=== PATIENT | female | born 1995 | race Caucasian/White ===

== ENCOUNTER 2021-12-26 16:54 | Outpatient (CLI) | payer BC, SELFPAY ==
--- OUTSIDE RECORDS SUMMARY | 2021-12-26 16:58 | XMS_ITS | Clinical Summary ---
:1995 Author Organization [facility] Address [address] [place] [address] Care Team Providers Name Role Phone Unavailable Primary Care Provider Unavailable Source Comments Patient records contain information from all sites at [facility]. For routine questions regarding patient records, call [phone] during business hours, M-F 8:00 AM - 5:00 PM Central Time. Record requests for emergency care only can be directed to [phone] at any time.[facility] Social History Tobacco Use Types Packs/Day Years Used Date Smoking Tobacco: Never Assessed Sex Assigned at Date Recorded Not on file Plan of Treatment Health Maintenance Due Date Last Done Comments Cervical Cancer Screening 1994 HIV Screening 1994 Hepatitis B Vaccines (1 of 3 1994 - 3-dose series) Hepatitis C Screening 1994 Depression Screening (Annual 04/15/2021 PHQ-2) COVID-19 Vaccine (3 - Booster 08/26/2021 03/28/2021, for Pfizer series) 03/07/2021 Influenza Vaccine (#1) 2022 03/07/2021, 01/14/2020 DTaP,Tdap,and Td Vaccines (2 10/05/2030 10/05/2020 - Td or Tdap) Pneumococcal vaccine (0-64 Aged Out No lo nger eligible based years) on patient's age to [facility] Insurance Payer Benefit Plan / Subscriber ID Effective Dates Phone Addre ss Type Group [employer] [place] [employer] [id number] 2009-Present PPO SHIELD BASIC/FOCUS
--- OUTSIDE RECORDS SUMMARY | 2021-12-26 16:58 | XMS_ITS | Encounter Summary ---
:1995 Author Organization [facility] Address [address] [place] [address] Care Team Providers Name Role Phone Unavailable Primary Care Provider Unavailable Reason for Visit Reason Onset Date Comments Outpatient COVID-19 Testing 01/19/2020 Encounter Details Date Type Department Care Team Description 01/19/2020 External Outreach Department [facility] [employer] [facility] in [facility], Respiratory ([place], [place] C.N.P., D.N.P. Dx) [address] [facility] [address] [place], [place] [phone] Social History Tobacco Use Types Packs/Day Years Used Date Smoking Tobacco: Never Assessed Sex Assigned at Date Recorded Not on file documented as of this encounter Progress Notes Jane Marcano RSangeeta. - 01/19/2020 2:58 PM CDT Encounter created for the drive-through COVID-19 testing. documented in this encounter Plan of Treatment Not on filedocumented as of this encounter Procedures Procedure Name Priority Date/Time Associated Diagnosis Comme nts SARS CORONAVIRUS-2 Routine 01/19/2020 3:02 PM Infection Upper Results for this RNA, V CDT Respiratory procedure are i n the results section. documented in this encounter Results SARS Coronavirus-2 RNA, V Symptomatic (01/19/2020 3:02 PM CDT) [facility] Method Time Signature SARS-CoV-2 Swab, 01/20/2020 MKTO Specimen Nasopharynx 6:27 PM CDT Source SARS CoV-2 Undetected Undetected 01/20/2020 MKTO RNA, TMA 6:27 PM CDT Comment: SARS-CoV-2 RNA absent. This result does not rule out COVID-19 in the patient, as the sensitivity of the test depends o n the timing of the specimen collection and the quality of the specim en. Result should be correlated with patient's history and clinical presentat ion. ----ADDITIONAL INFORMATION---- This test is performed using the Aptima SARS-CoV-2 assay ([employer] which has received Emergency Use Authori zation (EUA) by the U.S. Food and Drug Administration. Fact sheets for this Emergency Use Autho rization (EUA) assay can be found at the following links: For Healthcare Providers: https://www.[employer] a.gov/media/974347/download For Patients: https://www.fda.gov/media/ 775834/download Specimen Anatomical Collection Method Collection Time Receive d Time (Source) Location / / Volume Laterality Varies 01/19/2020 3:02 PM 0 (Nasopharynx) CDT 10:38 PM CDT Santiago Oh APRNN.P., D.N.P. LAB MICROBIOLOGY - GENERAL ORDERABLES Performing Organization Address City/State/ZIP Code Phon e Number [facility]- [address] [place] [phone] [place] [address] [place] [address] System in [address] documented in this encounter Visit Diagnoses Diagnosis Infection Upper Respiratory - Primary documented in this encounter Additional Health Concerns Infection Onset Date Last Indicated Resolved Time COVID19 Pending 01/19/2020 01/19/2020 01/20/2020 6:29 PM CDT documented as of this encounter
--- OUTSIDE RECORDS SUMMARY | 2021-12-26 16:58 | XMS_ITS | Encounter Summary ---
:1995 Author Organization [facility] Address [address] [place] [address] Care Team Providers Name Role Phone Unavailable Primary Care Provider Unavailable Encounter Details Date Type Department Care Team Description 08/12/2020 Orders Only [facility] Noble Cortes Jr., M.D. [address] [place] [address] [place] [phone] (Wo rk) Social History Tobacco Use Types Packs/Day Years Used Date Smoking Tobacco: Never Assessed Sex Assigned at Date Recorded Not on file documented as of this encounter Plan of Treatment Not on filedocumented as of this encounter Visit Diagnoses Not on filedocumented in this encounter
[2021-12-26 21:50] LABS: Hepatitis B Surface Antigen* Negative (Negative)
[2021-12-26 21:59] LABS: HIV 1/2/P24 Combo Screen* Negative (Negative)
[2021-12-26 22:07] LABS: Hepatitis C Virus Antibody* Negative (Negative)
[2021-12-26 23:03] LABS: Chlamydia DNA Amplified* NOT DETECTED (No Detected); GC DNA Amplified* NOT DETECTED (No Detected)
[2021-12-28 19:15] LABS: Rapid Plasma Reagin (RPR) Non Reactive (Non Reactive)
[2021-12-29 02:02] LABS: Varicella-Zoster Virus Ab, IgG 929.6 IV
[2021-12-29 02:06] LABS: Rubella Antibody IgG 33.8 IU/mL
== END 2021-12-26 16:55 | disposition home or self-care (01) ==
PROVIDERS: Visit Provider Physician Assistant
DX: Z34.91 Encounter for supervision of normal pregnancy, unspecified, first trimester (principal)
CPT/HCPCS: 76817; 86592; 86703; 86762; 86787; 86803; 86850; 86900; 86901; 87086; 87340; 87491; 87591

== ENCOUNTER 2022-01-23 16:47 | Outpatient (CLI) | payer BC, SELFPAY ==
--- OUTSIDE RECORDS SUMMARY | 2022-01-23 16:49 | XMS_ITS | Clinical Summary ---
:1995 Author Organization [facility] Address [address] [place] [address] Care Team Providers Name Role Phone Unavailable Primary Care Provider Unavailable Source Comments Patient records contain information from all sites at [facility]. For routine questions regarding patient records, call [phone] during business hours, M-F 8:00 AM - 5:00 PM Central Time. Record requests for emergency care only can be directed to [phone] at any time.[facility] Social History Tobacco Use Types Packs/Day Years Used Date Smoking Tobacco: Never Assessed Sex Assigned at Date Recorded Not on file Plan of Treatment Health Maintenance Due Date Last Done Comments Cervical Cancer Screening 1994 HIV Screening 1994 Hepatitis B Vaccines (1 of 3 1994 - 3-dose series) Hepatitis C Screening 1994 Depression Screening (Annual 04/15/2021 PHQ-2) COVID-19 Vaccine (3 - Booster 05/23/2021 03/28/2021, for Pfizer series) 03/07/2021 Influenza Vaccine (#1) 2022 03/07/2021, 01/14/2020 DTaP,Tdap,and Td Vaccines (2 10/05/2030 10/05/2020 - Td or Tdap) Pneumococcal vaccine (0-64 Aged Out No lo nger eligible based years) on patient's age to complete this to [facility] Insurance Payer Benefit Plan / Subscriber ID Effective Dates Phone Addre ss Type Group BL[employer] [place] [employer] [id number] 2009-Present PPO SHIELD BASIC/FOCUS
--- OUTSIDE RECORDS SUMMARY | 2022-01-23 16:49 | XMS_ITS | Encounter Summary ---
:1995 Author Organization [facility] Address [address] [place] [address] Care Team Providers Name Role Phone Unavailable Primary Care Provider Unavailable Reason for Visit Reason Onset Date Comments Outpatient COVID-19 Testing 01/19/2020 Encounter Details Date Type Department Care Team Description 01/19/2020 External [facility] in [facility], Respiratory ([place], [place] C.N.P., D.N.P. Dx) [address] [facility] [address] [place], [place] [phone] [phone] Social History Tobacco Use Types Packs/Day [...] RNA, V Symptomatic (01/19/2020 3:02 PM CDT) [facility] Method Time Signature SARS-CoV-2 Swab, 01/20/2020 MKTO [...] is performed using the Aptima SARS-CoV-2 assay ([employer] which has received Emergency Use Authori zation (EUA) by the U.S. Food and Drug Administration. Fact sheets for this Emergency Use Autho rization (EUA) assay can be found at the following links: For Healthcare Providers: https://www.[employer] a.gov/media/813283/download For Patients: https://www.fda.gov/media/ 363036/download Specimen Anatomical Collection Method Collection Time Receive d Time (Source) Location / / Volume Laterality Varies 01/19/2020 3:02 PM 0 (Nasopharynx) CDT 10:38 PM CDT Santiago Oh APRNN.P., D.N.P. LAB MICROBIOLOGY - GENERAL ORDERABLES Performing Organization Address City/State/ZIP Code Phon e Number [facility]- [address] [place] [phone] [place] [address] [place] [address] System [address] documented in this encounter Visit Diagnoses Diagnosis Infection Upper Respiratory - Primary documented in this encounter Additional Health Concerns Infection Onset Date Last Indicated Resolved Time COVID19 Pending 01/19/2020 01/19/2020 01/20/2020 6:29 PM CDT documented as of this encounter
--- OUTSIDE RECORDS SUMMARY | 2022-01-23 16:49 | XMS_ITS | Encounter Summary ---
:1995 Author Organization [facility] Address [address] [place] [address] Care Team Providers Name Role Phone Unavailable Primary Care Provider Unavailable Encounter Details Date Type Department Care Team Description 08/12/2020 Orders Only [facility] Noble Cortes Jr., M.D. [address] [place] [address] [place] [phone] (Wo rk) Social History Tobacco Use Types Packs/Day Years Used Date Smoking Tobacco: Never Assessed Sex Assigned at Date Recorded Not on file documented as of this encounter Plan of Treatment Not on filedocumented as of this encounter Visit Diagnoses Not on filedocumented in this encounter
--- NOTE | 2022-01-23 17:00 | CRLHL7_ITS ---
For Patients: As a result of the Century Cures Act, medical imaging exams and procedure reports are released immediately into your electronic medical record. You may view this report before your referring provider. If you have questions, please contact your health care provider. CLINICAL HISTORY: First trimester screening. TECHNIQUE: Real time howe scale imaging of the fetus was performed using a transabdominal approach. FINDINGS: Sonographic imaging demonstrates a single living intrauterine gestation. The fetus demonstrates a regular cardiac rate measuring 163 beats per minute. The crown rump length measurement of 4.9 cm corresponds to a gestation of 11 weeks 5 days which is concordant with the earlier dating ultrasound. A nuchal translucency measurement of 1.27 mm was obtained for screening purposes. Corpus luteal cyst left ovary noted measuring 2.3 x 2.3 x 2.6 cm. IMPRESSION: Nuchal translucency measurement obtained for first trimester screen. Dictated by Alexi Bruce MD @ 01/24/2022 9:14:23 AM (Electronically Signed)
== END 2022-01-23 16:48 | disposition home or self-care (01) ==
LOC: US 16:47
PROVIDERS: Visit Provider Physician Assistant
DX: Z34.91 Encounter for supervision of normal pregnancy, unspecified, first trimester (principal); Z3A.11 11 weeks gestation of pregnancy
CPT/HCPCS: 36415; 76801; 76813; 84163; 84702

== ENCOUNTER 2022-02-27 17:57 | Outpatient (CLI) | payer BC, SELFPAY ==
--- OUTSIDE RECORDS SUMMARY | 2022-02-27 18:00 | XMS_ITS | Clinical Summary ---
:1995 Author Organization [facility] Address [address] [place] [address] Care Team Providers Name Role Phone Unavailable Primary Care Provider Unavailable Source Comments Patient records contain information from all sites at [facility]. For routine questions regarding patient records, call [phone] during business hours, M-F 8:00 AM - 5:00 PM Central Time. Record requests for emergency care only can be directed to [phone] at any time.[facility] Social History Tobacco Use Types Packs/Day Years [...] on patient's age to complete this to [facility] Insurance Payer Benefit Plan / Subscriber ID Effective Dates Phone Addre ss Type Group [employer] [place] [employer] [id number] 2009-Present PPO SHIELD BASIC/FOCUS
--- OUTSIDE RECORDS SUMMARY | 2022-02-27 18:00 | XMS_ITS | Encounter Summary ---
:1995 Author Organization [facility] Address [address] [place] [address] Care Team Providers Name Role Phone Unavailable Primary Care Provider Unavailable Encounter Details Date Type Department Care Team Description 08/12/2020 Orders Only [facility] Noble Cortes Jr., M.D. [address] [place] [address] [place] [phone] (Wo rk) Social History Tobacco Use Types Packs/Day Years Used Date Smoking Tobacco: Never Assessed Sex Assigned at Date Recorded Not on file documented as of this encounter Plan of Treatment Not on filedocumented as of this encounter Visit Diagnoses Not on filedocumented in this encounter
--- OUTSIDE RECORDS SUMMARY | 2022-02-27 18:00 | XMS_ITS | Encounter Summary ---
:1995 Author Organization [facility] Address [address] [place] [address] Care Team Providers Name Role Phone Unavailable Primary Care Provider Unavailable Reason for Visit Reason Onset Date Comments Outpatient COVID-19 Testing 01/19/2020 Encounter Details Date Type Department Care Team Description 01/19/2020 External Outreach Department of [facility], In [facility] Upper Medicine in [facility], Respiratory ([place], [place] C.N.P., D.N.P. Dx) [address] [facility] [address] [place], [place] [phone] [phone] Social History Tobacco Use Types Packs/Day [...] RNA, V Symptomatic (01/19/2020 3:02 PM CDT) [facility] Method Time Signature SARS-CoV-2 Swab, 01/20/2020 MKTO [...] is performed using the Aptima SARS-CoV-2 assay ([employer] which has received Emergency Use Authori zation (EUA) by the U.S. Food and Drug Administration. Fact sheets for this Emergency Use Autho rization (EUA) assay can be found at the following links: For Healthcare Providers: https://www.Shuame a.gov/media/414130/download For Patients: https://www.fda.gov/media/ 499523/download Specimen Anatomical Collection Method Collection Time Receive d Time (Source) Location / / Volume Laterality Varies 01/19/2020 3:02 PM 0 (Nasopharynx) CDT 10:38 PM CDT Santiago Oh APRNN.P., D.N.P. LAB MICROBIOLOGY - GENERAL ORDERABLES Performing Organization Address City/State/ZIP Code Phon e Number [facility]- [address] [place] [phone] [place] [address] [place] [address] System [address] documented in this encounter Visit Diagnoses Diagnosis Infection Upper Respiratory - Primary documented in this encounter Additional Health Concerns Infection Onset Date Last Indicated Resolved Time COVID19 Pending 01/19/2020 01/19/2020 01/20/2020 6:29 PM CDT documented as of this encounter
[2022-03-02 10:08] LABS: Dating Ultrasound; Family Hx Neural Tube Defect No; Insulin Req Maternal Diabetes No; Maternal Age At Delivery 27.7 yr; Maternal Race Nonblack; Maternal Screen Interpretation Screen Neg; MoM for AFP 1.28; Number of Fetuses Singleton; Patient's AFP 39 ng/mL; Smoking No
== END 2022-02-27 17:58 | disposition home or self-care (01) ==
LOC: NFLDREF 17:59
PROVIDERS: Visit Provider Physician Assistant
DX: Z34.92 Encounter for supervision of normal pregnancy, unspecified, second trimester (principal); Z3A.16 16 weeks gestation of pregnancy
CPT/HCPCS: 81511

== ENCOUNTER 2022-03-27 16:44 | Outpatient (CLI) | payer BC, SELFPAY ==
--- NOTE | 2022-03-27 17:00 | CRLHL7_ITS ---
For Patients: As a result of the Century Cures Act, medical imaging exams and procedure reports are released immediately into your electronic medical record. You may view this report before your referring provider. If you have questions, please contact your health care provider. INDICATION: Evaluate anatomy. COMPARISON: 01/23/2022, 12/26/2021 TECHNIQUE: Real time howe scale imaging of the fetus was performed as well as color Doppler analysis of the umbilical vessels. FINDINGS: Sonographic imaging demonstrates a single living intrauterine gestation. Fetus demonstrates a regular cardiac rate of 152 beats per minute. Fetus has a vertex position. The placenta lies posteriorly without evidence of placenta previa. The edge of the placenta is located 8.6 cm from the internal cervical os. Amniotic fluid volume appears normal. Single deepest vertical pocket: 4.0 cm. The cervix is closed and measures 3.9 cm in length. The composite ultrasound gestational age is calculated at 20 weeks 5 days with an estimated sonographic due date of 08/09/2022. The estimated weight is 374 grams which lies at the 71st %. The following biometric measurements were obtained: Biparietal diameter: 4.9 cm/20 weeks 5 days 69th% Head circumference: 18.3 cm/20 weeks 5 days 60th% Abdominal circumference: 16.0 cm/21 weeks 1 day 72nd% Femur length: 3.3 cm/20 weeks 2 days 42nd% The HC/AC ratio measures: 1.14 range (1.06-1.25) On anatomic survey, there is a normal appearance of the cerebral ventricles, cavum septi pellucidi, cisterna magna and cerebellum. The nose, lips, and facial profile appear normal. The cervical, thoracic and lumbar spine are well visualized and appear normal. There is a normal four-chamber heart view and the left and right ventricular outflow tracts appear normal. The diaphragm and stomach appear normal. The kidneys and bladder also appear normal. There is a normal three-vessel cord and cord insertion site. The four extremities appear normal. IMPRESSION: Normal OB ultrasound exam with concordance of clinical and sonographic dating. No intrinsic abnormalities noted on anatomic survey. Dictated by Alexi Bruce MD @ 03/28/2022 9:33:15 AM (Electronically Signed)
== END 2022-03-27 16:45 | disposition home or self-care (01) ==
LOC: US 16:45
PROVIDERS: Visit Provider Physician Assistant
DX: Z34.92 Encounter for supervision of normal pregnancy, unspecified, second trimester (principal); Z3A.20 20 weeks gestation of pregnancy
CPT/HCPCS: 76805

== ENCOUNTER 2022-05-23 14:36 | Outpatient (CLI) | payer BC, SELFPAY ==
[2022-05-26 09:52] LABS: Rapid Plasma Reagin (RPR) Non Reactive (Non Reactive)
== END 2022-05-23 14:37 | disposition home or self-care (01) ==
LOC: NFLDREF 14:36
PROVIDERS: Visit Provider Registered Nurse
DX: Z34.93 Encounter for supervision of normal pregnancy, unspecified, third trimester (principal); Z3A.28 28 weeks gestation of pregnancy
CPT/HCPCS: 86592

== ENCOUNTER 2022-06-11 20:53 | Emergency (ER) | payer BC, SELFPAY ==
[2022-06-11] VITALS (7 sets, daily range): BP systolic 100–117; BP diastolic 57–78; PULSE 74–110; RESP 16–18; TEMP 36.9; O2SAT 97–99; BMI 32.6
--- NOTE | 2022-06-11 21:13 | ED.GENADULT ---
HPI - General Adult General Time Seen by Provider: 21:13 Date Seen: 06/11/22 Chief complaint: Unspecified Complaint, Adult Stated complaint: Stroke concern, 7 months Time Seen by Provider: 06/11/22 21:12 Source: patient and RN notes reviewed Mode of arrival: ambulatory Limitations: no limitations History of Present Illness HPI narrative: 28-year-old at about 31 weeks who comes in today with episode word-finding difficulty that lasted less than 1 minute. This occurred about 745. Patient had difficulty with finding some words but other words were still fluent. No other symptoms. Patient is back to baseline now. Denies any headache, nausea, vomiting associated with this. Related Data Home Medications Medication Instructions Recorded Confirmed cholecalciferol (vitamin D3) 50 2,000 unit PO DAILY 11/03/21 06/11/22 mcg (2,000 unit) tablet prenat.vits,moris,khn-pcet-qdzzq 1 tab PO QDAY 11/03/21 06/11/22 Allergies Allergy/AdvReac Type Severity Reaction Status Date / Time No Known Allergies Allergy Verified 06/11/22 21:04 [facility] Medical History (Updated 06/11/22 @ 22:59 by Fady Larson MD) History of abnormal cervical Papanicolaou smear History of gestational diabetes Normal spontaneous vaginal delivery PCOS (polycystic ovarian syndrome) Surgical History (Updated 06/11/22 @ 21:12 by Amando Farnsworth RN) No significant past surgical history Family History Maternal Grandmother Breast cancer Paternal Grandmother Breast cancer Aunt Breast cancer Social History (Updated 12/26/21 @ 17:23 by Lulu Morel PA-C) 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 Smoking Status: Never smoker Do you use any of these nicotine containing products: None Second hand tobacco smoke exposure: No How often do you have a drink containing alcohol: never How often do you have six or more drinks on one occasion: Never AUDIT-C Alcohol total score: 0 Non-prescribed substance use: denies use Little interest or pleasure in doing things: not at all Feeling down, depressed, or hopeless: not at all Exam Narrative: Exam Narrative: General: Well-developed and well-nourished, no acute distress Head: Atraumatic and normocephalic Eyes: Pupils are equal reactive, extraocular motions intact, conjunctiva clear ENT: External nose and ears are normal, posterior pharynx without erythema or exudate Neck: No midline cervical tenderness, full spontaneous range of motion the neck, trachea midline, no adenopathy Heart: Regular rate and rhythm no murmurs or thrills Lungs: Clear to auscultation bilaterally without wheezes or crackles Abdomen: Soft, nontender, gravid Musculoskeletal: No tenderness, deformity, or edema Neurologic: Awake, alert, and oriented x3, no gross focal neurologic deficits, cranial nerves intact as tested Psych: Mood and affect are appropriate Skin: No rashes Const: Vital Signs, click to edit/add: Vital Signs - 24 hr 06/11/22 21:01 06/11/22 21:57 06/11/22 22:01 Temperature 98.4 F Pulse Rate 95 109 H Pulse Rate [Right Pulse Oximeter] 74 Respiratory Rate 18 16 16 Blood Pressure 115/74 112/65 Blood Pressure [Ri ght Upper Arm] 114/78 Pulse Oximetry 99 98 98 Oxygen Delivery Me thod Room Air 06/11/22 22:08 Temperature Pulse Rate Pulse Rate [Right Pulse Oximeter] Respiratory Rate Blood Pressure Blood Pressure [Ri ght Upper Arm] Pulse Oximetry 98 Oxygen Delivery Me thod Course Course Hospital Course: Patient seen examined, prior records reviewed. Patient is 31 weeks and comes in with an episode of word-finding difficulty the lasted less than a minute, back to baseline now. No other associated symptoms. No focal neurologic findings on exam. heart tones are normal and patient reports usual movement. CT scan of the head is ordered tonight. If this is negative, patient can be discharged with MRI scheduled tomorrow. Reevaluation(s) Reevaluation #1: Labs independently interpreted by me reassuring. Head CT is negative. Nonstress testing per [facility]. Patient is stable for discharge with outpatient MRI tomorrow. Time: 22:56 Vital Signs Vital signs: Initial Vital Signs Temperature 98.4 F 06/11/22 21:01 Temperature Source Temporal Artery Scan 06/11/22 21:01 Pulse Rate 74 06/11/22 21:01 Respiratory Rate 18 06/11/22 21:01 Blood Pressure 114/78 06/11/22 21:01 Blood Pressure Mean 90 06/11/22 21:01 Blood Pressure Position Sitting 06/11/22 21:01 Pulse Oximetry 99 06/11/22 21:01 Oxygen Delivery Method 06/11/22 21:01 Vital Signs Temperature 98.4 F 06/11/22 21:01 Pulse Rate 74 06/11/22 21:01 Respiratory Rate 18 06/11/22 21:01 Blood Pressure 114/78 06/11/22 21:01 Pulse Oximetry 99 06/11/22 21:01 Oxygen Delivery Method 06/11/22 21:01 Temperature 98.4 F 06/11/22 21:01 Pulse Rate 109 H 06/11/22 22:01 Respiratory Rate 16 06/11/22 22:01 Blood Pressure 112/65 06/11/22 22:01 Pulse Oximetry 98 06/11/22 22:08 Oxygen Delivery Method 06/11/22 21:01 Medical Decision Making Lab Data Labs: Lab Results 06/11/22 06/11/22 Range/Units 21:55 21:55 WBC 8.14 (4.50-11.00) K/uL RBC 3.79 L (4.00-5.20) m/uL Hgb 12.1 (12.0-16.0) gm/dL Hct 35.6 (33.0-51.0) % MCV 94 (80-100) fL MCH 32 (26-34) pg MCHC 34 (32-36) gm/dL RDW Coeff of Sven 13.4 (11.5-15.5) % Plt Count 197 (140-440) K/uL Neut % (Auto) 53.5 (42.0-72.0) % Lymph % (Auto) 35.5 (20-44) % Carson % (Auto) 8.1 (0.0-11.0) % Eos % (Auto) 2.6 (0.0-7.0) % Baso % (Auto) 0.2 (0.0-3.0) % Neut # (Auto) 4.35 (1.7-7.0) K/uL Lymph # (Auto) 2.89 (0.90-2.90) K/uL Carson # (Auto) 0.70 (0.00-0.90) K/UL Eos # (Auto) 0.21 (0.00-0.50) K/uL Baso # (Auto) 0.02 (0.00-0.30) K/uL Sodium 137 (135-149) mmol/L Potassium 4.0 (3.6-5.1) mmol/L Chloride 107 (96-114) mmol/L Carbon Dioxide 25 (20-32) mmol/L BUN 10 (5-24) mg/dL Creatinine 0.7 (0.5-1.5) mg/dL Estimated Creat Clear 104.24 Estimated GFR 121 ml/min Glucose 100 (60-115) mg/dL Calcium 9.0 (8.4-10.6) mg/dL Imaging Data CT scan - head: Attestation: I have reviewed the pertinent imaging results. My impression: Negative noncontrast head CT ECG Data Attestation: I personally reviewed and interpreted this ECG as follows: Prior ECG tracings: not available for review Interpretation: Independently interpreted by me performed at 9:56 a.m. demonstrates sinus rhythm rate 96, no acute ST elevations or depressions, normal intervals, normal axis, QTC 434, IL 130. No prior for comparison. Discharge Plan Discharge Clinical Impression: Aphasia, and not yet delivered in third trimester Patient Disposition: Home w/ Parent or Adult Condition: Stable Instructions: Aphasia (DC) Additional Instructions: Return to the hospital tomorrow around 1:30 p.m. for your MRI. 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 Activity Level: No Restrictions Discharge Diet: Regular Prescriptions: No Action cholecalciferol (vitamin D3) 50 mcg (2,000 unit) tablet 2,000 unit PO DAILY prenat.vits,moris,tbv-yxzc-fzrxh Tablet 1 tab PO QDAY Follow Up/Referrals: Provider,Not a Local [Primary Care Provider] - Stand Alone Forms: [employer] Info Instructions
--- NOTE | 2022-06-11 21:30 | CRLHL7_ITS ---
For Patients: As a result of the Cures Act, medical imaging exams and procedure reports are released immediately into your electronic medical record. You may view this report before your referring provider. If you have questions, please contact your health care provider. INDICATION: Aphasia TECHNIQUE: CT Head without i.v. contrast. Coronal and sagittal reformats were obtained. COMPARISON: None FINDINGS: CSF space: The ventricles are normal for age. Brain: No evidence of mass, acute infarction or hemorrhage is seen. No mass-effect or midline shift is seen. The brain parenchyma is otherwise normal in appearance with preservation of the howe-white matter junction. Calvarium: Mild mucosal thickening is seen in the right maxillary sinus. The mastoid air cells are clear. The visualized orbits are grossly unremarkable. The calvarium is unremarkable in appearance with no fractures identified. IMPRESSION: 1. No evidence of acute infarction, intracranial hemorrhage, or mass-effect seen. Dictated by Chandrakant Levi MD @ 06/11/2022 10:17:20 PM Please note that all CT scans at this facility use dose modulation, iterative reconstruction, and/or weight-based dosing when appropriate to reduce radiation dose to as low as reasonably achievable. Dictated by: Chandrakant Levi MD @ 06/11/2022 22:17:23 (Electronically Signed)
[2022-06-11 22:01] LABS: Basophils Absolute Auto 0.02 K/uL (0.00-0.30); Basophils Percent Auto 0.2 % (0.0-3.0); Eosinophils Absolute Auto 0.21 K/uL (0.00-0.50); Eosinophils Percent Auto 2.6 % (0.0-7.0); Hematocrit 35.6 % (33.0-51.0); Hemoglobin* 12.1 gm/dL (12.0-16.0); Immature Granulocytes Abs Auto 0.01 K/uL (0.00-0.30); Immature Granulocytes Pct Auto 0.1 %; Lymphocytes Absolute Auto 2.89 K/uL (0.90-2.90); Lymphocytes Percent Auto 35.5 % (20-44); Mean Corpuscular HGB Conc 34 gm/dL (32-36); Mean Corpuscular Hemoglobin 32 pg (26-34); Mean Corpuscular Volume 94 fL (80-100); Monocytes Percent Auto 8.1 % (0.0-11.0); Neutrophils Absolute Auto 4.35 K/uL (1.7-7.0); Neutrophils Percent Auto 53.5 % (42.0-72.0); Platelet Count* 197 K/uL (140-440); RDW Coefficient of Variation % 13.4 % (11.5-15.5); Red Blood Count 3.79 m/uL (4.00-5.20); White Blood Count* 8.14 K/uL (4.50-11.00)
--- NOTE | 2022-06-11 22:05 | ED.NURSE ---
OB at bedside to do a non-stress test on mother.
[2022-06-11 22:09] LABS: Slide Review Reflex No
[2022-06-11 22:15] LABS: Chloride* 107 mmol/L (96-114); Sodium* 137 mmol/L (135-149)
[2022-06-11 22:18] LABS: Carbon Dioxide* 25 mmol/L (20-32); Creatinine* 0.7 mg/dL (0.5-1.5); Est. Creatinine Clearance* 104.24; Estimated Glomerular Filt Rate 121 ml/min
[2022-06-11 22:19] LABS: Blood Urea Nitrogen* 10 mg/dL (5-24); Glucose* 100 mg/dL (60-115)
--- NOTE | 2022-06-11 23:09 | PC.OBNST ---
NST Note NST Note Start: 06/11/22 23:06 Freq: ONCE Status: Active Protocol: Document 06/11/22 23:07 AM (Rec: 06/11/22 23:09 AM [id number]) NST Note 2 Para (# of births) 1 EDC 08/12/22 Gestational Age In Weeks & Days 31 Weeks & 1 Days Patient Presented with Complaint(s) of Other Other Complaints Pt came to ED with c/o stroke like s/s. Expressive aphasia x 1 min Reactive Yes Appropriate for Gestational Age Yes RN AMINER RNC Date 06/11/22 Reactive Yes Appropriate for Gestational Age Yes RN LANRER RN Date 06/11/22 OB NST charge Yes Complete NST Note via Write Note Yes The provider's electronic signature indicates the NST is reactive/appropriate for gestational age. *Note to provider: If an addendum is required, open the patient's chart and click on the note under the Nurse/Allied Health tab.
== END 2022-06-11 23:21 | disposition home or self-care (01) ==
PROVIDERS: Emergency Provider Family Medicine
DX: R47.01 Aphasia (principal); Z3A.31 31 weeks gestation of pregnancy
CPT/HCPCS: 36415; 59025; 70450; 80048; 85025; 93005; 94761; 99284; 99285

== ENCOUNTER 2022-06-12 13:37 | Outpatient (CLI) | payer BC, SELFPAY ==
--- NOTE | 2022-06-12 13:45 | CRLHL7_ITS ---
For Patients: As a result of the Century Cures Act, medical imaging exams and procedure reports are released immediately into your electronic medical record. You may view this report before your referring provider. If you have questions, please contact your health care provider. Indication: Aphasia. Technique: MRI Head: Performed without IV contrast. MRA Head: Performed without IV contrast. MRA Neck: Performed without IV contrast. Comparison: CT head 06/11/2022. Findings: Portions of the examination are suboptimal due to patient motion. MRI Head: The corpus callosum, optic chiasm, pituitary gland, clivus, brainstem and cerebellum appear intact. The craniocervical junction appears preserved. There is no restricted diffusion. No intracranial hemorrhage. The ventricles are proportionate to the cerebral sulci. The 4th ventricle appears midline. The basal cisterns appear patent. No abnormal extra-axial fluid collection identified. There is no intracranial mass, abnormal mass-effect or midline shift identified. The orbits are preserved. MRA Head: No occlusion/filling defect or acquired arterial stenosis identified. No aneurysm or vascular malformation seen. 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 MRA Neck: No evidence for hemodynamically significant internal carotid artery stenosis by NASCET criteria. The cervical segments of both vertebral arteries are patent. The aortic arch, great vessel origins and proximal subclavian arteries are not included on this non gadolinium exam. Impression: Images mildly degraded by patient motion. MRI Head: 1. No acute/subacute infarct. MRA Head: 1. No hemodynamically significant stenosis or occlusion. 2. No aneurysm. MRA Neck: 1. No evidence for hemodynamically significant ICA stenosis by NASCET criteria. Dictated by Yuriy Blake MD @ 06/12/2022 5:23:39 PM (Electronically Signed)
--- NOTE | 2022-06-12 14:30 | CRLHL7_ITS ---
For Patients: As a result of the Century Cures Act, medical imaging exams and procedure reports are released immediately into your electronic medical record. You may view this report before your referring provider. If you have questions, please contact your health care provider. Indication: Aphasia. Technique: MRI Head: Performed without IV contrast. MRA Head: Performed without IV contrast. MRA Neck: Performed without IV contrast. Comparison: CT head 06/11/2022. Findings: Portions of the examination are suboptimal due to patient motion. MRI Head: The corpus callosum, optic chiasm, pituitary gland, clivus, brainstem and cerebellum appear intact. The craniocervical junction appears preserved. There is no restricted diffusion. No intracranial hemorrhage. The ventricles are proportionate to the cerebral sulci. The 4th ventricle appears midline. The basal cisterns appear patent. No abnormal extra-axial fluid collection identified. There is no intracranial mass, abnormal mass-effect or midline shift identified. The orbits are preserved. MRA Head: No occlusion/filling defect or acquired arterial stenosis identified. No aneurysm or vascular malformation seen. 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 MRA Neck: No evidence for hemodynamically significant internal carotid artery stenosis by NASCET criteria. The cervical segments of both vertebral arteries are patent. The aortic arch, great vessel origins and proximal subclavian arteries are not included on this non gadolinium exam. Impression: Images mildly degraded by patient motion. MRI Head: 1. No acute/subacute infarct. MRA Head: 1. No hemodynamically significant stenosis or occlusion. 2. No aneurysm. MRA Neck: 1. No evidence for hemodynamically significant ICA stenosis by NASCET criteria. Dictated by Yuriy Blake MD @ 06/12/2022 5:24:12 PM (Electronically Signed)
--- NOTE | 2022-06-12 14:30 | CRLHL7_ITS ---
For Patients: As a result of the Century Cures Act, medical imaging exams and procedure reports are released immediately into your electronic medical record. You may view this report before your referring provider. If you have questions, please contact your health care provider. Indication: Aphasia. Technique: MRI Head: Performed without IV contrast. MRA Head: Performed without IV contrast. MRA Neck: Performed without IV contrast. Comparison: CT head 06/11/2022. Findings: Portions of the examination are suboptimal due to patient motion. MRI Head: The corpus callosum, optic chiasm, pituitary gland, clivus, brainstem and cerebellum appear intact. The craniocervical junction appears preserved. There is no restricted diffusion. No intracranial hemorrhage. The ventricles are proportionate to the cerebral sulci. The 4th ventricle appears midline. The basal cisterns appear patent. No abnormal extra-axial fluid collection identified. There is no intracranial mass, abnormal mass-effect or midline shift identified. The orbits are preserved. MRA Head: No occlusion/filling defect or acquired arterial stenosis identified. No aneurysm or vascular malformation seen. 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 MRA Neck: No evidence for hemodynamically significant internal carotid artery stenosis by NASCET criteria. The cervical segments of both vertebral arteries are patent. The aortic arch, great vessel origins and proximal subclavian arteries are not included on this non gadolinium exam. Impression: Images mildly degraded by patient motion. MRI Head: 1. No acute/subacute infarct. MRA Head: 1. No hemodynamically significant stenosis or occlusion. 2. No aneurysm. MRA Neck: 1. No evidence for hemodynamically significant ICA stenosis by NASCET criteria. Dictated by Yuriy Blake MD @ 06/12/2022 5:24:31 PM (Electronically Signed)
== END 2022-06-12 13:38 | disposition home or self-care (01) ==
LOC: MRI 13:38
PROVIDERS: Visit Provider Family Medicine
DX: R47.01 Aphasia (principal)
CPT/HCPCS: 70544; 70547; 70551

== ENCOUNTER 2022-07-02 13:39 | Outpatient (CLI) | payer BC, SELFPAY | END 2022-07-02 13:40 | disposition home or self-care (01) | LOC: RAD 13:40 | PROVIDERS: PCP Family Medicine; Visit Provider Family Medicine | DX: H53.9 Unspecified visual disturbance (principal); R47.01 Aphasia | CPT/HCPCS: 93306; 96374 ==

== ENCOUNTER 2022-07-20 13:46 | Outpatient (CLI) | payer BC, SELFPAY ==
--- NOTE | 2022-07-20 14:00 | CRLHL7_ITS ---
For Patients: As a result of the Century Cures Act, medical imaging exams and procedure reports are released immediately into your electronic medical record. You may view this report before your referring provider. If you have questions, please contact your health care provider. INDICATION: Third trimester scan, evaluate growth. COMPARISON: 03/27/2022 TECHNIQUE: Real time howe scale imaging of the fetus was performed. FINDINGS: Sonographic imaging demonstrates a single living intrauterine gestation. Fetus demonstrates a regular cardiac rate of 144 beats per minute. Fetus has a vertex position. The placenta lies posterior. Amniotic fluid volume appears normal and there is a single deepest vertical pocket: 5.5 cm. The estimated weight is 3356gm which lies at the 85th %. On the prior OB ultrasound exam dated 03/27/2022 the estimated weight was at the 71st%. BPD 80th percentile. HC 26th percentile. AC greater than 97th percentile. FL 49th percentile. The HC/AC ratio measures 0.93 range (0.91-1.05). IMPRESSION: Sonographic gestational age 37 weeks 3 days and sonographic due date of 08/07/2022. Sonographic age is 5 days ahead of the clinical age. Estimated weight 85th percentile. Abdominal circumference greater than 97th percentile. Single deepest pocket of amniotic fluid is 5.5 cm. Dictated by Alexi Bruce MD @ 07/23/2022 10:02:47 AM (Electronically Signed)
== END 2022-07-20 13:47 | disposition home or self-care (01) ==
LOC: US 13:47
PROVIDERS: PCP Family Medicine; Visit Provider Obstetrics & Gynecology
DX: Z34.93 Encounter for supervision of normal pregnancy, unspecified, third trimester (principal); Z3A.37 37 weeks gestation of pregnancy
CPT/HCPCS: 76816; 87081; 87653

== ENCOUNTER 2022-08-13 07:13 | Inpatient (IN) | payer BC, SELFPAY ==
[2022-08-13] VITALS (84 sets, daily range): BP systolic 71–129; BP diastolic 41–85; PULSE 60–139; RESP 16–18; TEMP 36.7–37.1; O2SAT 89–100; BMI 36.3
[2022-08-13] MEDS: LACTATED RINGERS 1000 ML 1,000 ML 124 ML IV (07:57)
[2022-08-13] MEDS: OXYTOCIN 30 unit/500 ML in NS 30 UNIT/500 ML BAG IVPB (08:00)
[2022-08-13 09:27] LABS: Basophils Absolute Auto 0.02 K/uL (0.00-0.30); Basophils Percent Auto 0.3 % (0.0-3.0); Eosinophils Absolute Auto 0.05 K/uL (0.00-0.50); Eosinophils Percent Auto 0.7 % (0.0-7.0); Hemoglobin* 12.4 gm/dL (12.0-16.0); Immature Granulocytes Abs Auto 0.05 K/uL (0.00-0.30); Immature Granulocytes Pct Auto 0.7 %; Lymphocytes Absolute Auto 2.07 K/uL (0.90-2.90); Lymphocytes Percent Auto 29.5 % (20-44); Mean Corpuscular HGB Conc 34 gm/dL (32-36); Mean Corpuscular Hemoglobin 32 pg (26-34); Mean Corpuscular Volume 95 fL (80-100); Monocytes Percent Auto 7.3 % (0.0-11.0); Neutrophils Absolute Auto 4.32 K/uL (1.7-7.0); Neutrophils Percent Auto 61.5 % (42.0-72.0); Platelet Count* 202 K/uL (140-440); RDW Coefficient of Variation % 13.8 % (11.5-15.5); Red Blood Count 3.91 m/uL (4.00-5.20); White Blood Count* 7.02 K/uL (4.50-11.00)
[2022-08-13 09:32] LABS: Slide Review Reflex No
--- NOTE | 2022-08-13 10:21 | P.LDBA_ITS ---
Subjective History of Present Illness Time Seen by Provider: 10:21 Date Seen: 08/13/22 Narrative: Shilpa is being admitted to Labor and Delivery for induction of labor for possible macrosomia (85% at 36 wk USN with AC >97%)/elective. She is a 26 year old at 40w2d gestation. Verbal consent obtained to perform artificial rupture of membranes. Her full history and physical was dictated by Harper Kaufman CNP on 07/24/2022. Please see this for details. OB PROBLEM LIST: 1. History of gestational diabetes, diet controlled Hemoglobin A1c: 5.5% Early 1 hour GTT 20 weeks: 72 Normal 1 hr gtt at 28 week: 112 2. Obesity, starting BMI 31.1 3. PCOS 4. First trimester screen:negative Planning AFP at 16-20 weeks: Drawn 02/27/2022: neg 5. Episode of aphasia, self-limited, lasted 2 minutes, no residual deficit * Seen in ED, negative workup including head CT, and head/neck MRI * Echocardiogram 07/02/22: reportedly normal * Has ophthalmology exam scheduled * If it recurs, should see neurology. 6. US at 36 5/7 wks = 07/20/22: cephalic, SDP 5.5, EFW 3356 g = 85%. BPD 80%, HC 26%, AC>97%, FL 49%. OBJECTIVE: GENERAL: Pleasant, , well groomed woman in no acute distress. VITAL SIGNS: Per electronic medical record: They are normal. HEART: Regular rate and rhythm without gallop, rub or murmur. CHEST: Clear to auscultation bilaterally. ABDOMEN: Gravid, nontender. EFM: Baseline 148, accelerations cold present, decelerations: absent, moderate variability, reactive. Category 1. TOCO: Q 4-5 minutes. The patient describes them as crampy. SVE: 4 cm/60%/-2/mid/soft. Yap score 8. AROM: clear fluid EXTREMITIES: No edema, cyanosis, clubbing or pain. ASSESSMENT: 26-year-old 2 para 1001 at 40 and 2/7 weeks gestation admitted for induction of labor. PLAN: 1. Pitocin per induction protocol 2. AROM performed. 3. GBS negative 4. Planning epidural for labor analgesia 5. Blood type: O positive. OB Exam Physical Exam Vital signs: Temp Pulse Resp BP Pulse Ox 98.2 F 75 18 110/58 L 93 08/13/22 09:24 08/13/22 09:23 08/13/22 09:24 08/13/22 09:23 08/13/22 09:23
[2022-08-13] MEDS: LACTATED RINGERS 1000 ML 1,000 ML 1200 ML IV ×2 (12:21→14:35)
[2022-08-13] MEDS: ROPIVACAINE 0.2 % PF 10 ML INJ 20 MG EPIDURAL (12:36)
[2022-08-13] MEDS: ROPIVACAINE 0.2% 100 ml 100 ML 12 MG EPIDURAL (12:36)
[2022-08-13] MEDS: LIDOCAINE 2% (PF) 5 ML VIAL EPIDURAL (12:36)
[2022-08-13] MEDS: PHENYLEPHRINE 100 MCG/ML SYRINGE IVP ×6 (12:41→15:15)
--- NOTE | 2022-08-13 12:43 | PM.ANBPRC ---
[facility] Medical History (Updated 07/03/22 @ 09:01 by Alice Obregon MD) History of abnormal cervical Papanicolaou smear ?Z87.42 - Personal history of other diseases of the female genital tract (ICD-10) History of gestational diabetes ?Z86.32 - Personal history of gestational diabetes (ICD-10) PCOS (polycystic ovarian syndrome) ?E28.2 - Polycystic ovarian syndrome (ICD-10) Surgical History (Updated 06/15/22 @ 16:19 by Alice Obregon MD) No significant past surgical history Normal spontaneous vaginal delivery ?O80 - Encounter for full-term uncomplicated delivery (ICD-10) Family History (Updated 06/15/22 @ 16:20 by Alice Obregon MD) Maternal Grandmother Breast cancer Paternal Grandmother Breast cancer Aunt Breast cancer Family/Other Heart disease Social History (Updated 06/15/22 @ 16:21 by Alice Obregon MD) 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 Does not drink alcohol Exercise twice a week by walking Smoking Status: Never smoker Do you use any of these nicotine containing products: None Second hand tobacco smoke exposure: No How often do you have a drink containing alcohol: never How often do you have six or more drinks on one occasion: Never AUDIT-C Alcohol total score: 0 Non-prescribed substance use: denies use Little interest or pleasure in doing things: not at all Feeling down, depressed, or hopeless: not at all Meds Home Medications and Allergies Home Medications Medication Instructions Recorded Confirmed Type cholecalciferol (vitamin D3) 50 2,000 unit PO DAILY 11/03/21 08/13/22 History mcg (2,000 unit) tablet prenat.vits,moris,qih-rmjd-dgelj 1 tab PO QDAY 11/03/21 08/13/22 History Allergies Allergy/AdvReac Type Severity Reaction Status Date / Time No Known Allergies Allergy Verified 08/07/22 15:10 Results Labs Labs: Laboratory Results - last 24 hr 08/13/22 09:15 WBC 7.02 RBC 3.91 L Hgb 12.4 Hct 37.0 MCV 95 MCH 32 MCHC 34 RDW Coeff of Sven 13.8 Plt Count 202 Neut % (Auto) 61.5 Lymph % (Auto) 29.5 [place] % (Auto) 7.3 Eos % (Auto) 0.7 Baso % (Auto) 0.3 Neut # (Auto) 4.32 Lymph # (Auto) 2.07 [place] # (Auto) 0.50 Eos # (Auto) 0.05 Baso # (Auto) 0.02 Blood Type O Positive Antibody Screen NEGATIVE Vital Signs Vital Signs: Last Vital Signs Temp 98.2 F 08/13/22 11:03 Pulse 80 08/13/22 12:42 Resp 18 08/13/22 11:03 BP 89/50 L 08/13/22 12:42 Pulse Ox 98 08/13/22 12:41 Weight: 95.878 kg Height: 162.56 cm Anesthesia Procedures Epidural Insertion Patient Location: OB Start Time: 12:00 Stop Time: 12:43 Start Date: 08/13/22 Stop Date: 08/13/22 Reason for Block: procedure for pain Patient Position: sitting Performed By: Larry Espinosa Preanesthetic Checklist: IV checked, risks and benefits discussed, surgical consent, monitors and equipment checked, pre-op evaluation, timeout performed and anesthesia consent Prep: chlorhexidine gluconate Monitoring: blood pressure monitoring, continuous pulse oximetry and heart rate Approach: midline Vertebral Space: lumbar (1-5) Epidural Technique: NIDA air Needle Type: Tuohy needle Injection Technique: continuous catheter Needle gauge: 17 Needle Length (cm): 10 cm Needle Insertion Depth (cm): 7 Catheter Gauge: 19 Catheter Type: multi-orifice Catheter at skin depth (cm): 13 Test Dose Result: negative and lidocaine 1.5% with epinephrine 1 to 200,000
[2022-08-13] MEDS: ePHEDrine sulfate 5 MG/ML inj 10 MG IVP (12:45)
--- NOTE | 2022-08-13 14:31 | PM.OBPNL ---
Subjective Time Seen by Provider: 14:31 Date Seen: 08/13/22 Narrative: Subjective: Patient is comfortable w/ epidural/uncomfortable with contractions. Pitocin: 11 milliunits/minute. The patient received an epidural just over 1.5 hours ago and is comfortable. Her blood pressure has been very low after the epidural and has received multiple doses of phenylephrine Vital signs: Per electronic medical record. EFM: Baseline 130s, multiple accelerations, no decelerations, moderate variability, reactive. Category 1. [place]: Contractions every 5-6 minutes. SVE: 6 cm/75 %/-1. Assessment: 26-year-old 2 para 1 at 40 weeks 2 days gestation undergoing induction of labor with slow progress. Plan: 1. Continue Pitocin per labor induction protocol. 2. Continue to manage hypotension. Objective Vital Signs: Last Vital Signs Temp 98.0 F 08/13/22 13:57 Pulse 86 08/13/22 14:24 Resp 16 08/13/22 13:57 BP 83/51 L 08/13/22 14:24 Pulse Ox 99 08/13/22 14:26
[2022-08-13] MEDS: miSOPROStoL 800 MCG/4 TABLET PR (15:57)
[2022-08-13] MEDS: OXYTOCIN 10 UNIT/ML INJ IM (16:05)
--- NOTE | 2022-08-13 16:15 | W.PM.VAGDEL1 ---
Procedure Delivery date: 08/13/22 Procedure Done: Global Events: Labor Induction Intrapartal Events: None Delivery monitor: external FHT and external uterine Route of delivery: Episiotomy description: None Laceration description: Perineal - 2nd Degree Delivery repair: Vicryl Estimated blood loss (mL): 550 Anesthesia type: Epidural Disposition: floor Narrative: Shilpa is a 26 year-old G 2 P 1001 now 2 admitted on 08/13/2022 at 7:30 a.m. at 40 Weeks, 2 Days gestation for induction of labor. AROM occurred at 10:16 a.m. on 08/13/2022 with clear fluid. Labor Analgesia: Epidural Pitocin: Yes Labor onset: 08/13/2022 at 10:30 a.m.. Complete: 08/13/2022 at 3:21 p.m.. Pushin08/13/2022 at 3:21 p.m.. heart tones during second stage were: Category 2 with 1 episode of prolonged deceleration in the 80s, verbal consent obtained to perform a vacuum assisted vaginal delivery and the patient turn to her right side and heart rate return to the 120s with maternal position change. At 3:37 p.m. a viable male infant delivered in vertex direct OA presentation over second-degree perineal laceration via spontaneous vaginal delivery. The was placed on maternal abdomen. Cord was clamped and cut after a 60 second delay. Nose and mouth were bulb suctioned. weight pending. 8 at 1 minute and 9 at 5 minutes. Shoulder dystocia: No. Nuchal cord: Single loose nuchal cord easily reduced prior to delivery of the infant's shoulders. Placenta delivered spontaneously and complete at 3:52 p.m. with a 3 vessel cord. Laceration(s): Second-degree perineal. Repaired using 3-0 Vicryl suture in the usual manner. Blood loss: 550 mL. Blood loss measurement type: Quantitative Sponge and needles counts are correct. After delivery of the placenta the patient's IV was noted to be infiltrated so she received 10 units Pitocin IM and 800 mg Cytotec rectally. Specimen: None Mother and were stable after delivery. 's name: Zuhair Garcia The patient is planning on breast feeding. Infant Gender: Male presentation: vertex Placental Delivery Description: Spontaneous Cord Description: 3 Vessels, Nuchal Cord and Loose
[2022-08-13] MEDS: IBUPROFEN 600 MG TABLET PO (19:33)
[2022-08-13] MEDS: ACETAMINOPHEN 500 MG TABLET 1000 MG PO (23:47)
[2022-08-14] MEDS: IBUPROFEN 600 MG TABLET PO ×3 (02:00→14:33)
[2022-08-14 05:30] VITALS: BP 106/74; PULSE 89; RESP 18; TEMP 36.9; O2SAT 98
[2022-08-14] MEDS: ACETAMINOPHEN 500 MG TABLET 1000 MG PO ×2 (05:38→12:08)
[2022-08-14 06:17] LABS: Hemoglobin* 10.2 gm/dL (12.0-16.0)
--- NOTE | 2022-08-14 07:56 | PM.OBDSVD1 ---
DS: Providers Provider Date Seen: 08/14/22 Date of admission: 08/13/22 07:13 Primary care physician: Alice Obregon MD Admitting Clinician: Oxana Alfonso MD Attending Physician on discharge: Halima Wood CNM DS: Diagnosis Discharge Diagnosis (1) care and examination immediately after delivery: Status: Acute (2) Lactating mother: Status: Acute Exam Narrative: Exam Narrative: GENERAL APPEARANCE:? normal affect, alert, no distress MOOD:? appropriate CHEST:? clear to auscultation HEART:? regular rate and rhythm ABDOMEN:? soft, non-tender the uterine fundus is at Umbilicus, Midline and is appropriate for the stage of recovery. PERINEUM:? mild edema of the perineum, there is a Perineal Laceration,?2nd degree, that is healing well. EXTREMITIES:? normal and no edema Const: Vital Signs, click to edit/add: Vital Signs - 24 hr 08/13/22 09:22 08/13/22 09:23 08/13/22 09:24 Temperature 98.2 F Pulse Rate 75 Pulse Rate [Pulse Oximeter] Respiratory Rate 18 Blood Pressure 110/58 L Blood Pressure [Ri ght Arm] Pulse Oximetry 97 93 Oxygen Delivery Me thod 08/13/22 10:21 08/13/22 11:02 08/13/22 11:03 Temperature 98.2 F Pulse Rate 76 93 Pulse Rate [Pulse Oximeter] Respiratory Rate 18 Blood Pressure 117/65 114/68 Blood Pressure [Ri ght Arm] Pulse Oximetry Oxygen Delivery Me thod 08/13/22 12:21 08/13/22 12:24 08/13/22 12:26 Temperature Pulse Rate 100 Pulse Rate [Pulse Oximeter] Respiratory Rate Blood Pressure 121/85 Blood Pressure [Ri ght Arm] Pulse Oximetry 100 100 Oxygen Delivery Pr thod 08/13/22 12:31 08/13/22 12:34 08/13/22 12:36 Temperature Pulse Rate 90 95 94 Pulse Rate [Pulse Oximeter] Respiratory Rate Blood Pressure 120/75 116/72 113/66 Blood Pressure [Ri ght Arm] Pulse Oximetry 100 99 Oxygen Delivery Pr thod 08/13/22 12:38 08/13/22 12:40 08/13/22 12:41 Temperature Pulse Rate 89 89 Pulse Rate [Pulse Oximeter] Respiratory Rate Blood Pressure 90/51 L 94/54 L Blood Pressure [Ri ght Arm] Pulse Oximetry 98 Oxygen Delivery Pr thod 08/13/22 12:42 08/13/22 12:44 08/13/22 12:46 Temperature Pulse Rate 80 93 83 Pulse Rate [Pulse Oximeter] Respiratory Rate Blood Pressure 89/50 L 71/41 L 96/48 L Blood Pressure [Ri ght Arm] Pulse Oximetry 97 Oxygen Delivery Pr thod 08/13/22 12:48 08/13/22 12:50 08/13/22 12:52 Temperature Pulse Rate 83 90 82 Pulse Rate [Pulse Oximeter] Respiratory Rate Blood Pressure 95/54 L 118/62 111/56 L Blood Pressure [Ri ght Arm] Pulse Oxim[facility] 12:56 08/13/22 12:59 08/13/22 13:01 Temperature Pulse Rate 99 Pulse Rate [Pulse Oximeter] Respiratory Rate Blood Pressure 119/65 Blood Pressure [Ri ght Arm] Pulse Oximetry 97 97 [facility] 08/13/22 13:04 08/13/22 13:06 08/13/22 13:11 Temperature Pulse Rate 98 Pulse Rate [Pulse Oximeter] Respiratory Rate Blood Pressure 114/64 Blood Pressure [Ri ght Arm] Pulse Oximetry 97 96 [facility] 08/13/22 13:16 08/13/22 13:21 08/13/22 13:22 Temperature Pulse Rate 98 Pulse Rate [Pulse Oximeter] Respiratory Rate Blood Pressure 115/60 Blood Pressure [Ri ght Arm] Pulse Oximetry 97 96 [facility] 08/13/22 13:26 08/13/22 13:31 08/13/22 13:35 Temperature Pulse Rate 92 Pulse Rate [Pulse Oximeter] Respiratory Rate Blood Pressure 95/60 Blood Pressure [Ri ght Arm] Pulse Oximetry 96 96 [facility] 08/13/22 13:36 08/13/22 13:41 08/13/22 13:46 Temperature Pulse Rate Pulse Rate [Pulse Oximeter] Respiratory Rate Blood Pressure Blood Pressure [Ri ght Arm] Pulse Oximetry 97 98 98 [facility] 08/13/22 13:50 08/13/22 13:51 08/13/22 13:56 Temperature Pulse Rate 86 Pulse Rate [Pulse Oximeter] Respiratory Rate Blood Pressure 105/62 Blood Pressure [Ri ght Arm] Pulse Oximetry 98 99 Oxygen Delivery Pr thod 08/13/22 13:57 08/13/22 14:01 08/13/22 14:03 Temperature 98.0 F Pulse Rate 77 Pulse Rate [Pulse Oximeter] Respiratory Rate 16 Blood Pressure 109/68 Blood Pressure [Ri ght Arm] Pulse Oximetry 100 Oxygen Delivery Pr thod 08/13/22 14:05 08/13/22 14:06 08/13/22 14:08 Temperature Pulse Rate 78 80 Pulse Rate [Pulse Oximeter] Respiratory Rate Blood Pressure 110/63 100/55 L Blood Pressure [Ri ght Arm] Pulse Oximetry 97 Oxygen Delivery Pr thod 08/13/22 14:10 08/13/22 14:11 08/13/22 14:12 Temperature Pulse Rate 84 Pulse Rate [Pulse Oximeter] Respiratory Rate Blood Pressure 95/52 L 101/58 L Blood Pressure [Ri ght Arm] Pulse Oximetry 98 Oxygen Delivery Pr thod 08/13/22 14:16 08/13/22 14:21 08/13/22 14:21 Temperature Pulse Rate Pulse Rate [Pulse Oximeter] Respiratory Rate Blood Pressure Blood Pressure [Ri ght Arm] Pulse Oximetry 99 98 89 [facility] 08/[facility]/22 14:24 08/13/22 14:26 08/13/22 14:31 Temperature Pulse Rate 86 Pulse Rate [Pulse Oximeter] Respiratory Rate Blood Pressure 83/51 L Blood Pressure [Ri ght Arm] Pulse Oximetry 99 99 [facility] 08/13/22 14:33 08/13/22 14:35 08/13/22 14:36 Temperature Pulse Rate 75 81 Pulse Rate [Pulse Oximeter] Respiratory Rate Blood Pressure 102/57 L 93/54 L Blood Pressure [Ri ght Arm] Pulse Oximetry 99 Oxygen Delivery Pr thod 08/13/22 14:41 08/13/22 14:46 08/13/22 14:51 Temperature Pulse Rate 77 Pulse Rate [Pulse Oximeter] Respiratory Rate Blood Pressure 129/67 Blood Pressure [Ri ght Arm] Pulse Oximetry 100 100 99 Oxygen Delivery Pr thod 08/13/22 14:56 08/13/22 14:59 08/13/22 15:00 Temperature Pulse Rate 74 81 79 Pulse Rate [Pulse Oximeter] Respiratory Rate Blood Pressure 91/52 L 91/51 L 106/54 L Blood Pressure [Ri ght Arm] Pulse Oximetry 100 [facility] 08/13/22 15:01 08/13/22 15:02 08/13/22 15:04 Temperature Pulse Rate 76 80 Pulse Rate [Pulse Oximeter] Respiratory Rate Blood Pressure 95/52 L 98/54 L Blood Pressure [Ri ght Arm] Pulse Oximetry 100 [facility] 08/13/22 15:06 08/13/22 15:11 08/13/22 15:11 Temperature Pulse Rate 98 Pulse Rate [Pulse Oximeter] Respiratory Rate Blood Pressure 97/53 L 99/51 L Blood Pressure [Ri ght Arm] Pulse Oximetry 100 100 Oxygen Delivery [facility] 08/13/22 15:11 08/13/22 15:16 08/13/22 15:21 Temperature Pulse Rate 90 99 Pulse Rate [Pulse Oximeter] Respiratory Rate Blood Pressure 107/70 Blood Pressure [Ri ght Arm] Pulse Oximetry 100 100 Oxygen Delivery [facility] 08/13/22 15:26 08/13/22 15:31 08/13/22 15:36 Temperature Pulse Rate 88 Pulse Rate [Pulse Oximeter] Respiratory Rate Blood Pressure 103/60 Blood Pressure [Ri ght Arm] Pulse Oximetry 100 100 93 [facility] 08/13/22 15:54 08/13/22 16:25 08/13/22 16:43 Temperature Pulse Rate 99 99 103 H Pulse Rate [Pulse Oximeter] Respiratory Rate Blood Pressure 114/55 L 98/57 L 123/57 L Blood Pressure [Ri ght Arm] Pulse Oximetry [facility] 08/13/22 16:54 08/13/22 17:18 08/13/22 17:24 Temperature Pulse Rate 99 90 96 Pulse Rate [Pulse Oximeter] Respiratory Rate Blood Pressure 110/62 122/64 106/60 Blood Pressure [Ri ght Arm] Pulse Oximetry [facility] 08/13/22 17:39 08/13/22 17:54 08/13/22 19:42 Temperature 98.7 F Pulse Rate 85 96 Pulse Rate [Pulse Oximeter] 89 Respiratory Rate 18 Blood Pressure 111/62 112/67 Blood Pressure [Ri ght Arm] 121/74 Pulse Oximetry 98 [facility] 08/13/22 23:30 08/14/22 05:30 Temperature 98.4 F 98.4 F Pulse Rate Pulse Rate [Pulse Oximeter] 88 89 Respiratory Rate 16 18 Blood Pressure Blood Pressure [Ri ght Arm] 86/54 L 106/74 Pulse Oximetry 98 Oxygen Delivery Me thod Room Air Room Air Documenting provider has reviewed patient's vital signs: yes OB - DS: Summary Hospital Course Hospital Course: The patient is a 26 year old G 2 P 2 at 40 1/7 weeks gestation that was admitted to the [facility] on 08/13/22 for induction of labor for suspected macrosomia. She had an uncomplicated vaginal delivery. She delivered a viable male . ?The patient feels well. ?The pain is well controlled with current medications. ?She has no new complaints. ?She is breast feeding and reports things are going well.? the patient has done well.? Vitals have been stable.? She has remained afebrile.? Has a good appetite, is tolerating a general diet. ?She is voiding without difficulty.? She is passing gas and has not had a bowel movement.? She is ambulating and denies any dizziness.? Has Small amount of rubra lochia. ?She is planning NFP for prevention. Peripartum Data Infant delivery method: Vaginal Laceration description: Perineal - 2nd Degree complications: none [place] Infant Gender: Male Infant Discharge Plan: Home Status at Discharge Functional status at discharge: independent ambulation Overall status at discharge: patient is progressing back to baseline Time Spent with Patient Time attestation: Total time spent providing and/or coordinating discharge services: Time spent: Less than 30 minutes Discharge Plan Discharge Disposition: Home, Self-Care Date of Admission: 08/13/22 07:13 Attending Provider on Discharge: Halima Wood Primary Care Provider: Alice Obregon Condition: Stable Anticipated Discharge Date/Time: 08/14/22 18:23 Discharge Medications: New docusate sodium 100 mg Capsule 100 mg PO BID PRN (Reason: constipation) Qty: 100 0RF ibuprofen 600 mg Tablet 600 mg PO Q6H PRNQty: 30 0RF acetaminophen 500 mg Tablet 1,000 mg PO Q6H PRNQty: 0 0RF Continued cholecalciferol (vitamin D3) 50 mcg (2,000 unit) tablet 2,000 unit PO DAILY prenat.vits,moris,dfr-vnvd-datlx Tablet 1 tab PO QDAY Discharge Orders: Discharge Order (Routine); Ordered 08/14/22 Ordered By: Halima Wood Patient Education: OB Over the Counter Medication Information, OB Vaginal/Breast Feeding Activity Level: Activity as Tolerated Activity Detail: ACTIVITY RESTRICTIONS: Nothing vaginally for 6 weeks: no tampons/intercourse Off of work/school for a minimum of 6 weeks [facility] with [facility] provider: 2 week visit: Review contraceptive options, screen for anxiety/depression and answer questions regarding care. 6 week visit for an annual physical exam. consultation services are available to all mothers and babies for the first year after delivery.? To make an appointment, please call [phone]. Discharge Diet: Regular Follow Up Appointments[facility]: [facility] Inst[facility]
[2022-08-14 08:33] VITALS: BP 121/72; PULSE 74; RESP 16; TEMP 36.3; O2SAT 97
[2022-08-14] MEDS: DOCUSATE SODIUM 100 MG CAPSULE PO (08:41)
[2022-08-14] MEDS: MULTIVITAMIN/MINERALS 1 TABLET 1 TAB PO (08:41)
[2022-08-14 12:00] VITALS: BP 119/75; PULSE 85; RESP 16; TEMP 36.3; O2SAT 97
[2022-08-14 15:50] VITALS: BP 110/73; PULSE 74; RESP 18; TEMP 36.2
== END 2022-08-14 18:03 | disposition home or self-care (01) | DRG 560 ==
PROVIDERS: Admitting Provider Obstetrics & Gynecology; PCP Family Medicine; Visit Provider Obstetrics & Gynecology
DX: O76 Abnormality in fetal heart rate and rhythm complicating labor and delivery (principal); O70.1 Second degree perineal laceration during delivery; I95.89 Other hypotension; Z3A.40 40 weeks gestation of pregnancy; Z37.0 Single live birth; O99.284 Endocrine, nutritional and metabolic diseases complicating childbirth; E28.2 Polycystic ovarian syndrome; E66.9 Obesity, unspecified; O99.214 Obesity complicating childbirth
CPT/HCPCS: 01967; 36415; 85018; 85025; 86850; 86900; 86901; 99211; A9153; A9270; J2370; J2590; J2795; J7120

== ENCOUNTER 2023-11-21 07:05 | Outpatient (CLI) | payer BC, SELFPAY ==
--- OUTSIDE RECORDS SUMMARY | 2023-11-21 07:09 | XMS_ITS | Encounter Summary ---
Author Organization [facility] Address [address] [place] [address] Care Team Providers Care Post Doctoral Fellow Name Role Phone Unavailable Primary Care Provider Unavailabl e Reason for Visit * Reason Comments Breast Pain X 1 wk L just finish ed Encounter Details Date Type Department Care Team (Late st Contact Info) Description 08/19/2023 5:30 PM CDT Office Visit Urgent Care, [facility], in [place], [place] [address] [place] [phone] Tran Kumar, P.A.-C. [address] [place] [phone] Mastitis (Primary Dx) Discharge Disposition: Home or Self Care Social History Tobacco Use Types Packs/Day Years Used Date Smoking Tobacco: Never Passive Smoke Exposure: Never Smokeless Tobacco: Never Tobacco Cessation:Counseling Given: Not Answered Dental Answer Date Recorded Dental: Regular Dentist Unknown 06/24/19 21 Sex and Gender Information Value Date Recorded Sex Assigned at Not on file Gender Identity Not on file Sexual Orientation Not on file documented as of this encounter Last Filed Vital Signs Vital Sign Reading Time Taken Comments Blood Pressure 121/80 08/19/2023 5:08 PM CDT Pulse 71 08/19/2023 5:08 PM CDT Temperature 36.1 ??C (97 ??F) 08/19/2023 5:08 PM CDT Respiratory Rate - - Oxygen Saturation 100% 08/19/2023 5:08 PM CDT Inhaled Oxygen Concentration - - Weight - - Height - - Body Mass Index - - documented in this encounter Progress Notes * Tran Kumar P.A.-C. - 08/19/2023 5:30 PM CDT SUBJECTIVE CHIEF COMPLAINT/REASON FOR VISIT Breast Pain (X 1 wk L just finished ) HISTORY OF PRESENT ILLNESS Pt presenting for evaluation for concern for possible mastitis. Patient states that she has slowly been weaning from breast feeding recently in the past week when her son turned 1 year old. She has been still occasionally breast feeding most recently breast fed about 4 days ago. She notes swelling,pain and palpable lump to the lateral left breast. Symptoms worsening over the weekend. She has noted warmth to touch. She is afebrile today. No prior history of similar problem. She suspected possibly mastitis. Has still been able to express breast milk from nipple, has not pumped or breast fed the past four days. Active Ambulatory Problems Diagnosis Date Noted No Active Ambulatory Problems Resolved Ambulatory Problems Diagnosis Date Noted No Resolved Ambulatory Problems No Additional Past Medical History Current Outpatient Medications on File Prior to Visit Medication Sig Dispense Refill cholecalciferol (VITAMIN D3) 10 mcg (400 Unit) tablet Take 2,000 Units by mouth. vit calc,iron,folic (PRENAT.VITS,CARLIE,[id number] ORAL) Take 1 tablet by mouth. No current facility-administered medications on file prior to visit. OBJECTIVE Vitals: 08/19/23 1708 BP: 121/80 Pulse: 71 Temp: 36.1 ??C SpO2: 100% There is no height or weight on file to calculate BMI. PHYSICAL EXAMINATION Constitutional: Nursing note and vitals reviewed. She appears not lethargic. No distress. Pulmonary/Chest: Left breast exhibits tenderness and swelling (palpable duct to the left lateral breast that is tender to palpation. Area is mildly warm to touch. No redness.). Left breast exhibits no skin change and no bleeding. Neurological: Alert. Skin: She is not diaphoretic. ASSESSMENT/PLAN #1 Mastitis - dicloxacillin (DYNAPEN) 500 mg capsule; Take 1 capsule (500 mg total) by mouth 4 (four) times a day for 10 days., Starting 08/19/2023, Until Rosangela 08/29/2023, Normal Discussed with the patient based on history and findings consistent with suspected mastitis. Start amoxicillin medications prescribed. Recommend while symptomatic continuing to express milk from the left breast using pump or feeding few times per day. She can slowly wean off as symptoms are improving to once daily and then slowly stop altogether. Her goal is to wean altogether as her child has term 1 years old and that was the reason she had DC/decreased in the past few weeks prior to onset of symptoms. Continue to monitor for symptoms worsening including fever, increased pain, increased swelling, changes to the skin of the breast. Tylenol ibuprofen as needed for pain. Return precautions reviewed. If new or worsening symptoms return to urgent care or ED for further evaluation without delay. Follow up in 4 days if symptoms fail to improve as anticipated. Electronically signed by: Tran Kumar P.A.-C. 08/19/23 6:14 PM CDT documented in this encounter Plan of Treatment Not on file documented as of this encounter Visit Diagnoses Diagnosis Mastitis- Primary documented in this encounter
--- OUTSIDE RECORDS SUMMARY | 2023-11-21 07:09 | XMS_ITS | Referral Summary ---
Author Organization [facility] Address [address] [place] [address] Care Team Providers Care Assistant Finance Manager Name Role Phone Unavailable Primary Care Provider Unavailabl e Source Comments Patient records contain information from all sites at [facility]. For routine questions regarding patient records, call [phone] during business hours, M-F 8:00 AM - 5:00 PM Central Time. Record requests for emergency care only can be directed to [phone] at any time.[facility] Allergies No known active allergies Medications Medication Sig Dispensed Refills Start Date End Date Status cholecalciferol (VITAMIN D3) 10 mcg (400 Unit) tablet Take 2,000 Units by mouth. 11/03/2021 Active vit calc,iron,folic (PRENAT.VITS,CARLIE,MIN-I STEW-FOLIC ORAL) Take 1 tablet by mouth. 11/03/2021 Active Active Problems No known active problems Social History Tobacco Use Types Packs/Day Years Used Date Smoking Tobacco: Never Passive Smoke Exposure: Never Smokeless Tobacco: Never Tobacco Cessation:Counseling Given: Not Answered Dental Answer Date Recorded Dental: Regular Dentist Unknown 06/24/19 21 Sex and Gender Information Value Date Recorded Sex Assigned at Not on file Gender Identity Not on file Sexual Orientation Not on file Last Filed Vital Signs Vital Sign Reading Time Taken Comments Blood Pressure 121/80 08/19/2023 5:08 PM CDT Pulse 71 08/19/2023 5:08 PM CDT Temperature 36.1 ??C (97 ??F) 08/19/2023 5:08 PM CDT Respiratory Rate - - Oxygen Saturation 100% 08/19/2023 5:08 PM CDT Inhaled Oxygen Concentration - - Weight 74.7 kg (164 lb 10.9 oz) 05/24/2023 5:47 PM AERIAL PHOTOGRAPH INTERPRETER Height - - Body Mass Index - - Plan of Treatment Not on file
--- OUTSIDE RECORDS SUMMARY | 2023-11-21 07:09 | XMS_ITS ---
Author Organization [facility] Address [address] [place] [address] Care Team Providers Care Safety Risk Lead Name Role Phone Unavailable Unavailable Unavailable Surgery Details Not on file Complications Check Surgery Details section. Procedure Estimated Blood Loss Check Surgery Details section. Procedure Findings Check Surgery Details section. Procedure Specimens Taken Check Surgery Details section.
--- OUTSIDE RECORDS SUMMARY | 2023-11-21 07:09 | XMS_ITS | Clinical Summary ---
Author Organization [facility] Address [address] [place] [address] Care Team Providers Care Junior Electrical Engineer Name Role Phone Unavailable Primary Care Provider Unavailabl e Source Comments Patient records contain information from all sites at [facility]. For routine questions regarding patient records, call [phone] during business hours, M-F 8:00 AM - 5:00 PM Central Time. Record requests for emergency care only can be directed to [phone] at any time.[facility] Allergies No known active allergies Medications Medication [...] (164 lb 10.9 oz) 05/24/2023 5:47 PM GEOPHYSICAL E LOGGER Height - - Body Mass Index - - Plan of Treatment Health Maintenance Due Date Last Done Comments Cervical Cancer Screening 1994 HIV Screening 1994 Hepatitis C Screening 1994 Hepatitis B Vaccines (1 of 3 - 19+ 3-dose series) 2013 COVID-19 Vaccine (3 - 2022-2 4 season) 2022 03/28/2021, 03/07/2021 Depression Screening (Annual PHQ-2) 04/15/2023 Influenza Vaccine (#1) 2024 2, 03/07/2021, 01/14/2020 DTaP,Tdap,and Td Vaccines (3 - Td or Tdap) 06/06/2032 06/06/2022, 10/05/2020 HPV Vaccines Aged Out No longer eligi ble based on patient's age to complete this topic Pneumococcal vaccine (0-64 years) Aged Out No longer eligible b ased on patient's age to complete this topic
--- NOTE | 2023-11-21 07:15 | CRLHL7_ITS ---
For Patients: As a result of the Century Cures Act, medical imaging exams and procedure reports are released immediately into your electronic medical record. You may view this report before your referring provider. If you have questions, please contact your health care provider. INDICATION: First trimester scan, establish dates. COMPARISON: None. TECHNIQUE: Real-time howe-scale imaging of the pelvis was performed. FINDINGS: Sonographic imaging demonstrates a single living intrauterine gestation. The embryo demonstrates a regular cardiac rate measuring 116 beats per minute. The embryo`s crown-rump length measurement of 2.5 cm corresponds to a gestational age of 7 weeks 1 day with a sonographic due date of 07/08/2024. There is a normal-appearing yolk sac. There are no gross abnormalities noted within the embryo at this early state of development. Circumscribed tissue extends into the gestational sac measuring 1.2 x 0.9 x 2.9 cm. There is no evidence of a perigestational hemorrhage. The amount of fluid within the sac appears appropriate for gestational age. The cervix is closed. The myometrium appears normal. Normal right ovary. Left ovary not visualized. There are no suspicious fluid collections noted in the cul-de-sac. IMPRESSION: Single living intrauterine with sonographic gestational age 7 weeks 1 day and sonographic due date of 07/08/2024. Chorionic bump appears to be present measuring 12 x 9 x 29 millimeters. Follow-up at 11-12 weeks recommended. Dictated by Alexi Bruce MD @ 11/21/2023 1:03:33 PM (Electronically Signed)
== END 2023-11-21 07:06 | disposition home or self-care (01) ==
PROVIDERS: PCP Family Medicine; Visit Provider Advanced Practice Midwife
DX: Z34.91 Encounter for supervision of normal pregnancy, unspecified, first trimester (principal); Z3A.01 Less than 8 weeks gestation of pregnancy
CPT/HCPCS: 76817

== ENCOUNTER 2023-12-02 09:09 | Outpatient (CLI) | payer BC, SELFPAY ==
--- NOTE | 2023-12-02 | CRLHL7_ITS ---
For Patients: As a result of the Century Cures Act, medical imaging exams and procedure reports are released immediately into your electronic medical record. You may view this report before your referring provider. If you have questions, please contact your health care provider. INDICATION: f/u viability COMPARISON: 11/21/2023 TECHNIQUE: Real-time howe-scale imaging of the pelvis was performed. FINDINGS: Intrauterine gestational sac is present measuring 3.8 cm, 9 weeks 1 day. pole is present with crown-rump length measuring 1.8 cm, 8 weeks 2 days. No heart tones. Yolk sac measures 3.5 millimeters. Right ovary normal. Left ovary not visualized. IMPRESSION: Intrauterine demise. Dictated by Alexi Bruce MD @ 12/02/2023 11:03:28 AM (Electronically Signed)
--- OUTSIDE RECORDS SUMMARY | 2023-12-02 09:37 | XMS_ITS | Clinical Summary ---
Author Organization [facility] Address [address] [place] [address] Care Team Providers Care Experience Specialist Name Role Phone Unavailable Primary Care Provider Unavailabl e Source Comments Patient records contain information from all sites at [facility]. For routine questions regarding patient records, call [phone] during business hours, M-F 8:00 AM - 5:00 PM Central Time. Record requests for emergency care only can be directed to [phone] at any time.[facility] Allergies No known active allergies Medications [...] (164 lb 10.9 oz) 05/24/2023 5:47 PM COMMUNICATIONS COORDINATOR Height - - Body Mass Index - [...]
--- OUTSIDE RECORDS SUMMARY | 2023-12-02 09:37 | XMS_ITS | Referral Summary ---
Author Organization [facility] Address [address] [place] [address] Care Team Providers Care Angle Roll Operator Name Role Phone Unavailable Primary Care Provider Unavailabl e Source Comments Patient records contain information from all sites at [facility]. For routine questions regarding patient records, call [phone] during business hours, M-F 8:00 AM - 5:00 PM Central Time. Record requests for emergency care only can be directed to [phone] at any time.[facility] Allergies No known active [...] (164 lb 10.9 oz) 05/24/2023 5:47 PM MILITARY POLICE OFFICER Height - - Body Mass Index - - Plan of Treatment Not on file
--- OUTSIDE RECORDS SUMMARY | 2023-12-02 09:37 | XMS_ITS ---
Author Organization [facility] Address [address] [place] [address] Care Team Providers Care Powdered Metal Supervisor Name Role Phone Unavailable Unavailable Unavailable Surgery Details Not on file Complications Check Surgery Details section. Procedure Estimated Blood Loss Check Surgery Details section. Procedure Findings Check Surgery Details section. Procedure Specimens Taken Check Surgery Details section.
== END 2023-12-02 09:10 | disposition home or self-care (01) ==
LOC: US 09:10
PROVIDERS: PCP Family Medicine; Visit Provider Physician Assistant
DX: Z34.91 Encounter for supervision of normal pregnancy, unspecified, first trimester (principal); O02.1 Missed abortion; Z3A.09 9 weeks gestation of pregnancy
CPT/HCPCS: 76817; 84702

== ENCOUNTER 2023-12-10 07:21 | Emergency (ER) | payer BC, SELFPAY ==
[2023-12-10 07:29] VITALS: BP 114/64; PULSE 92; RESP 16; TEMP 37.6; O2SAT 96; BMI 28.3
--- NOTE | 2023-12-10 07:47 | ED.GENADULT ---
HPI - General Adult General Chief complaint: Fever <Alina Fields MD - Last Filed: 12/11/23 00:03> Stated complaint: fever,chills,pain (miscarriage last week) <Alina Fields MD - Last Filed: 12/11/23 00:03> Time Seen by Provider: 12/10/23 07:37 <Alina Fields MD - Last Filed: 12/11/23 00:03> Source: patient <Alina Fields MD - Last Filed: 12/11/23 00:03> Mode of arrival: ambulatory <Alina Fields MD - Last Filed: 12/11/23 00:03> Limitations: no limitations <Alina Fields MD - Last Filed: 12/11/23 00:03> History of Present Illness HPI narrative: 28-year-old female presents to the emergency department for evaluation of fever. She has a history of a recent miscarriage, ultrasound performed 1 week ago indicating a missed . She was treated medically with side attack last Saturday and Saturday. 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 Was initially fairly heavy. This morning, she started getting a mild headache, achiness and low-grade fever. She was told to come in for evaluation if fever occurred. She has no abdominal pain. There is no nausea, vomiting or diarrhea. She has no productive cough. Headache is diffuse, no vision changes, sinus symptoms, earache. No sore throat. Nieces and nephews have been mildly ill but she has not had much contact with them. No other family members are currently ill, no pertinent travel. No dysuria or other localizing symptoms of infection. She is not feeling overwhelmingly ill, does was told to be evaluated if she had a fever in the setting of these symptoms. Past medical history fairly benign per her report. G3 P 2 with recent miscarriage, likely completed based on her history. No current long-term medications. No allergies. Blood type known to be O-positive. <Alina Fields MD - Last Filed: 12/11/23 00:03> Related Data Home medications: Home Medications ?Medication ?Instructions ?Recorded ?Confirmed cholecalciferol (vitamin D3) 50 2,000 unit PO DAILY 11/03/21 12/02/23 mcg (2,000 unit) tablet prenat.vits,moris,wgn-[id number] 1 tab PO QDAY 11/03/21 12/10/23 Previous Rx's ?Medication ?Instructions ?Recorded misoprostol 200 mcg tablet 800 mcg (4 x 200 mcg) PO ONCE #4 12/02/23 tabs <Alina Fields MD - Last Filed: 12/11/23 00:03> Allergies/adverse reactions: Allergies Allergy/AdvReac Type Severity Reaction Status Date / Time No Known Allergies Allergy Verified 12/10/23 07:28 <Alina Fields MD - Last Filed: 12/11/23 00:03> [facility] Medical History: Medical History Second degree perineal laceration ?O70.1 - Second degree perineal laceration during delivery (ICD-10) Normal echocardiogram (06/2022) Visual disturbance (~06/2022) ?H53.9 - Unspecified visual disturbance (ICD-10) PCOS (polycystic ovarian syndrome) ?E28.2 - Polycystic ovarian syndrome (ICD-10) History of gestational diabetes ?Z86.32 - Personal history of gestational diabetes (ICD-10) History of abnormal cervical Papanicolaou smear ?Z87.42 - Personal history of other diseases of the female genital tract (ICD-10) <Alina Fields MD - Last Filed: 12/11/23 00:03> Surgical History: Surgical History No significant past surgical history Normal spontaneous vaginal delivery (08/13/22) ?O80 - Encounter for full-term uncomplicated delivery (ICD-10) <Alina Fields MD - Last Filed: 12/11/23 00:03> Family History: Family History Maternal Grandmother Breast cancer Paternal Grandmother Breast cancer Aunt Breast cancer Family/Other Heart disease <Alina Fields MD - Last Filed: 12/11/23 00:03> Social History: Social History 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 Does not drink alcohol Exercise twice a week by walking What is your current living situation?: I presently have a place to live Problems where you live: no known problems In the past 12 months, utilities in danger of being shut off: no In past 12 months, lack of transportation kept you from medical appts, meetings, work, or getting things needed for daily living: no In the past 12 mos, have been you worried that your food would run out before you had money to buy more?: never true In the past 12 mos, the food you bought just didn't last and you didn't have money to buy more?: never true Smoking Status: Never smoker Do you use any of these nicotine containing products: None Second hand tobacco smoke exposure: No How often do you have a drink containing alcohol: never How often do you have six or more drinks on one occasion: Never AUDIT-C Alcohol total score: 0 Non-prescribed substance use: denies use How often does anyone, including family, friends and others, physically hurt you: never How often does anyone, including family, friends and others, insult or talk down to you: never How often does anyone, including family, friends and others, threaten you with harm: never How often does anyone, including family, friends and others, scream or curse at you: never Little interest or pleasure in doing things: not at all Feeling down, depressed, or hopeless: not at all <Alina Fields MD - Last Filed: 12/11/23 00:03> Exam Const: Vital Signs, click to edit/add: Vital Signs - 24 hr 12/10/23 07:29 12/10/23 09:10 12/10/23 09:11 Temperature 99.7 F H 100 F H 100 F H Pulse Rate [Pulse Oximeter] 92 84 Respiratory Rate 16 16 Blood Pressure [Ri ght Upper Arm] 114/64 117/78 Pulse Oximetry 96 98 Oxygen Delivery Me thod Room Air Room Air <Alina Fields MD - Last Filed: 12/11/23 00:03> Vital Signs, click to edit/add: Vital Signs - 24 hr 12/10/23 07:29 12/10/23 09:10 12/10/23 09:11 Temperature 99.7 F H 100 F H 100 F H Pulse Rate [Pulse Oximeter] 92 84 Respiratory Rate 16 16 Blood Pressure [[facility] Upper Arm] 114/64 117/78 Pulse Oximetry 96 98 Oxygen Delivery Me thod Room Air Room Air <Alexi Humphrey MD - Last Filed: 12/10/23 09:41> Documenting provider has reviewed patient's vital signs: yes <Alina Fields MD - Last Filed: 12/11/23 00:03> Common normals: no apparent distress and alert <Alina Fields MD - Last Filed: 12/11/23 00:03> General appearance: well kempt <Alina Fields MD - Last Filed: 12/11/23 00:03> HENMT: Common normals: normocephalic, moist oral mucous membranes and oropharynx normal <MD Zenia Dias Last Filed: 12/11/23 00:03> Head and scalp: normocephalic <MD Zenia Dias Last Filed: 12/11/23 00:03> Eye: Common normals: conjunctivae normal <MD Zenia Dias Last Filed: 12/11/23 00:03> General eye: normal appearance of both eyes <MD Zenia Dias Last Filed: 12/11/23 00:03> Conjunctiva: conjunctiva(e) normal <MD Zenia Dias Last Filed: 12/11/23 00:03> Neck & C-Spine: Common normals: full ROM, no lymphadenopathy and no meningeal signs <MD Zenia Dias Last Filed: 12/11/23 00:03> Resp: Common normals: normal respiratory effort, no use of accessory muscles and clear to auscultation bilaterally <MD Zenia Dias Last Filed: 12/11/23 00:03> Effort & inspection: able to speak in complete sentences <MD Zenia Dias Last Filed: 12/11/23 00:03> Auscultation: clear to auscultation bilaterally <MD Zenia Dias Last Filed: 12/11/23 00:03> Cardio: Common normals: regular rate, regular rhythm, S1 normal heart sound, S2 normal heart sound and no murmurs <MD Zenia Dias Last Filed: 12/11/23 00:03> Rate: regular rate <MD Zenia Dias Last Filed: 12/11/23 00:03> Rhythm: regular rhythm <MD Zenia Dias Last Filed: 12/11/23 00:03> Heart sounds: S1 normal and S2 normal <MD Zenia Dias Last Filed: 12/11/23 00:03> GI: Common normals: Normal to inspection, nondistended, normoactive bowel sounds present, soft to palpation, non-tender, no hepatosplenomegaly and no masses <MD Zenia Dias Last Filed: 12/11/23 00:03> Palpation: soft and no hepatosplenomegaly <MD Zenia Dias Last Filed: 12/11/23 00:03> Other: No pelvic discomfort on exam, no mass. Fundal height not palpable. No rebound tenderness or guarding. <MD Zenia Dias Last Filed: 12/11/23 00:03> Back & Pelvis: Common normals: thoracic and lumbar spine normal to inspection <MD Zenia Dias Last Filed: 12/11/23 00:03> Extremity: Common normals: normal to inspection and normal capillary refill <MD Zenia Dias Last Filed: 12/11/23 00:03> Neuro: Sensorium/orientation: alert <MD Zenia Dias Last Filed: 12/11/23 00:03> Meningeal signs: no meningeal signs <MD Zenia Dias Last Filed: 12/11/23 00:03> Speech: speech normal <MD Zenia Dias Last Filed: 12/11/23 00:03> Motor exam: no movement abnormalities noted <Alina Fields MD - Last Filed: 12/11/23 00:03> Psych: Appearance: well kempt <Alina Fields MD - Last Filed: 12/11/23 00:03> Attitude: engaged <Alina Fields MD - Last Filed: 12/11/23 00:03> Mood and affect: euthymic mood <MD Zenia Dias Last Filed: 12/11/23 00:03> Insight: insight good <Alina Fields MD - Last Filed: 12/11/23 00:03> Judgement: judgment good <MD Zenia Dias Last Filed: 12/11/23 00:03> Skin: Common normals: no rashes or lesions noted <MD Zenia Dias Last Filed: 12/11/23 00:03> General skin exam: no rashes or lesions noted <Alina Fields MD - Last Filed: 12/11/23 00:03> Course Course ED Course: 28-year-old female with recent missed and medical management with side attack, history is suggestive of completed . Low-grade fever worrisome for potential endometritis, septic . Differential diagnosis also including mild viral illness, enteritis, infection, pneumonia, pharyngitis. Exam is very reassuring. I have recommended hCG quant, very basic blood work, urinalysis and COVID swab. Based on the fact that she does not have any pelvic pain, as long as there is not a high white count, we can probably pass on ultrasound. If significant leukocytosis or other indicators for more severe infection, would recommend pelvic ultrasound and OB consult. Will hand over care to incoming day shift team, Dr. Humphrey <Alina Fields MD - Last Filed: 12/11/23 00:03> Vital Signs Vital signs: Initial Vital Signs Temperature 99.7 F H 12/10/23 07:29 Temperature Source Temporal Artery Scan 12/10/23 07:29 Pulse Rate 92 12/10/23 07:29 Respiratory Rate 16 12/10/23 07:29 Blood Pressure 114/64 12/10/23 07:29 Blood Pressure Mean 80 12/10/23 07:29 Blood Pressure Position High-Fowlers 12/10/23 07:29 Pulse Oximetry 96 12/10/23 07:29 Oxygen Delivery Method Room Air 12/10/23 07:29 Vital Signs Temperature 99.7 F H 12/10/23 07:29 Pulse Rate 92 12/10/23 07:29 Respiratory Rate 16 12/10/23 07:29 Blood Pressure 114/64 12/10/23 07:29 Pulse Oximetry 96 12/10/23 07:29 Oxygen Delivery Method Room Air 12/10/23 07:29 Temperature 100 F H 12/10/23 09:11 Pulse Rate 84 12/10/23 09:11 Respiratory Rate 16 12/10/23 09:11 Blood Pressure 117/78 12/10/23 09:11 Pulse Oximetry 98 12/10/23 09:11 Oxygen Delivery Method Room Air 12/10/23 09:11 <Alina Fields MD - Last Filed: 12/11/23 00:03> Initial Vital Signs Temperature 99.7 F H 12/10/23 07:29 Temperature Source Temporal Artery Scan 12/10/23 07:29 Pulse Rate 92 12/10/23 07:29 Respiratory Rate 16 12/10/23 07:29 Blood Pressure 114/64 12/10/23 07:29 Blood Pressure Mean 80 12/10/23 07:29 Blood Pressure Position High-Fowlers 12/10/23 07:29 Pulse Oximetry 96 12/10/23 07:29 Oxygen Delivery Method Room Air 12/10/23 07:29 Vital Signs Temperature 99.7 F H 12/10/23 07:29 Pulse Rate 92 12/10/23 07:29 Respiratory Rate 16 12/10/23 07:29 Blood Pressure 114/64 12/10/23 07:29 Pulse Oximetry 96 12/10/23 07:29 Oxygen Delivery Method Room Air 12/10/23 07:29 Temperature 100 F H 12/10/23 09:11 Pulse Rate 84 12/10/23 09:11 Respiratory Rate 16 12/10/23 09:11 Blood Pressure 117/78 12/10/23 09:11 Pulse Oximetry 98 12/10/23 09:11 Oxygen Delivery Method Room Air 12/10/23 09:11 <Alexi Humphrey MD - Last Filed: 12/10/23 09:41> Medications Administered Medications: Discontinued Medications Generic Name Dose Route Start Last Admin Trade Name Fredonal PRN Reason Stop Dose Admin Acetaminophen 1,000 mg 12/10/23 09:03 12/10/23 09:10 Acetaminophen 500 Mg Tablet PO 12/10/23 09:04 1,000 mg ONCE ONE Administration <Alina Fields MD - Last Filed: 12/11/23 00:03> Discontinued Medications Generic Name Dose Route Start Last Admin Trade Name Freq PRN Reason Stop Dose Admin Acetaminophen 1,000 mg 12/10/23 09:03 12/10/23 09:10 Acetaminophen 500 Mg Tablet PO 12/10/23 09:04 1,000 mg ONCE ONE Administration <Alexi Humphrey MD - Last Filed: 12/10/23 09:41> Medical Decision Making MDM Narrative Medical decision making narrative: Kam -- was asked to follow-up with this patient at change of shift in the emergency department pending labs. Reviewed all labs. Are reassuring. No further events in the ER. <Alexi Humphrey MD - Last Filed: 12/10/23 09:41> Lab Data Lab results reviewed: Yes I reviewed the patient's lab results <Alina Fields MD - Last Filed: 12/11/23 00:03> Lab results narrative: Reassuring. No leukocytosis. HCG level is appropriate. Indicates low levels for this gestational age, no prior comparison. As stated Rh positive blood type negative CRP and viral swabs. Recommend conservative management <Alina Fields MD - Last Filed: 12/11/23 00:03> Labs: Lab Results 12/10/23 12/10/23 Range/Units 07:55 08:20 WBC 10.03 (4.50-11.00) K/uL RBC 4.07 (4.00-5.20) m/uL Hgb 12.5 (12.0-16.0) gm/dL Hct 37.8 (33.0-51.0) % MCV 93 (80-100) fL MCH 31 (26-34) pg MCHC 33 (32-36) gm/dL RDW Coeff of Sven 12.8 (11.5-15.5) % Plt Count 203 (140-440) K/uL Neut % (Auto) 70.3 (42.0-72.0) % Lymph % (Auto) 21.2 (20-44) % Hendricks % (Auto) 8.1 (0.0-11.0) % Eos % (Auto) 0.1 (0.0-7.0) % Baso % (Auto) 0.3 (0.0-3.0) % Neut # (Auto) 7.05 H (1.7-7.0) K/uL Lymph # (Auto) 2.13 (0.90-2.90) K/uL Hendricks # (Auto) 0.80 (0.00-0.90) K/UL Eos # (Auto) 0.01 (0.00-0.50) K/uL Baso # (Auto) 0.03 (0.00-0.30) K/uL Abs Immat Gran (auto) 0.00 (0.00-0.30) K/uL Imm/Tot Granulo (auto) 0.0 % Sodium 135 (135-149) mmol/L Potassium 3.7 (3.6-5.1) mmol/L Chloride 103 (96-114) mmol/L Carbon Dioxide 22 (20-32) mmol/L Anion Gap 10 (7-15) mEq/L BUN 8 (5-24) mg/dL Creatinine 0.7 (0.5-1.5) mg/dL Estimated Creat Clear 102.40 Estimated GFR 120 ml/min Glucose 114 (60-115) mg/dL Calcium 9.1 (8.4-10.6) mg/dL C-Reactive Protein < 0.5 L (0.5-1.0) mg/dL HCG, Quant 2455.40 mIU/mL Urine Color Yellow (Yellow) Urine Appearance Clear (Clear) Urine pH 7.5 (5.0-8.5) Ur Specific [place] 1.015 (1.000-1.030) Urine Protein Negative (Negative) Urine Glucose (UA) Negative (Negative) Urine Ketones Negative (Negative) Urine Blood 2+ A (Negative) Urine Nitrite Negative (Negative) Urine Bilirubin Negative (Negative) Urine Urobilinogen 0.2 (0.2-1.0) Ur Leukocyte Esterase Negative (Negative) Urine RBC 0-2 (0-2) Urine WBC 0-2 (0-5) Ur Squamous Epith Cells Few (None-Few) Urine Bacteria None (None) SARS-CoV-2 (PCR) Negative SARS-CoV-2 (Negative) Influenza Type A (PCR) Negative PCR FLU A (Negative) Influenza Type B (PCR) Negative PCR FLU B (Negative) RSV (PCR) Negative PCR RSV (Negative) <Alina Fields MD - Last Filed: 12/11/23 00:03> Lab Results 12/10/23 12/10/23 Range/Units 07:55 08:20 WBC 10.03 (4.50-11.00) K/uL RBC 4.07 (4.00-5.20) m/uL Hgb 12.5 (12.0-16.0) gm/dL Hct 37.8 (33.0-51.0) % MCV 93 (80-100) fL MCH 31 (26-34) pg MCHC 33 (32-36) gm/dL RDW Coeff of Sven 12.8 (11.5-15.5) % Plt Count 203 (140-440) K/uL Neut % (Auto) 70.3 (42.0-72.0) % Lymph % (Auto) 21.2 (20-44) % Hendricks % (Auto) 8.1 (0.0-11.0) % Eos % (Auto) 0.1 (0.0-7.0) % Baso % (Auto) 0.3 (0.0-3.0) % Neut # (Auto) 7.05 H (1.7-7.0) K/uL Lymph # (Auto) 2.13 (0.90-2.90) K/uL Hendricks # (Auto) 0.80 (0.00-0.90) K/UL Eos # (Auto) 0.01 (0.00-0.50) K/uL Baso # (Auto) 0.03 (0.00-0.30) K/uL Abs Immat Gran (auto) 0.00 (0.00-0.30) K/uL Imm/Tot Granulo (auto) 0.0 % Sodium 135 (135-149) mmol/L Potassium 3.7 (3.6-5.1) mmol/L Chloride 103 (96-114) mmol/L Carbon Dioxide 22 (20-32) mmol/L Anion Gap 10 (7-15) mEq/L BUN 8 (5-24) mg/dL Creatinine 0.7 (0.5-1.5) mg/dL Estimated Creat Clear 102.40 Estimated GFR 120 ml/min Glucose 114 (60-115) mg/dL Calcium 9.1 (8.4-10.6) mg/dL C-Reactive Protein < 0.5 L (0.5-1.0) mg/dL HCG, Quant 2455.40 mIU/mL Urine Color Yellow (Yellow) Urine Appearance Clear (Clear) Urine pH 7.5 (5.0-8.5) Ur Specific [place] 1.015 (1.000-1.030) Urine Protein Negative (Negative) Urine Glucose (UA) Negative (Negative) Urine Ketones Negative (Negative) Urine Blood 2+ A (Negative) Urine Nitrite Negative (Negative) Urine Bilirubin Negative (Negative) Urine Urobilinogen 0.2 (0.2-1.0) Ur Leukocyte Esterase Negative (Negative) Urine RBC 0-2 (0-2) Urine WBC 0-2 (0-5) Ur Squamous Epith Cells Few (None-Few) Urine Bacteria None (None) SARS-CoV-2 (PCR) Negative SARS-CoV-2 (Negative) Influenza Type A (PCR) Negative PCR FLU A (Negative) Influenza Type B (PCR) Negative PCR FLU B (Negative) RSV (PCR) Negative PCR RSV (Negative) <Alexi Humphrey MD - Last Filed: 12/10/23 09:41> Discharge Plan Discharge Clinical Impression: Fever, Complete miscarriage <Alina Fields MD - Last Filed: 12/11/23 00:03> Patient Disposition: Home w/ Parent or Adult <Alina Fields MD - Last Filed: 12/11/23 00:03> Condition: Stable <Alina Fields MD - Last Filed: 12/11/23 00:03> Instructions: Fever in Adults (ED) <Alina Fields MD - Last Filed: 12/11/23 00:03> Additional Instructions: Thankfully, there are no signs of any complications with the miscarriage. I do not think ultrasound or further workup is necessary. It is okay to use Tylenol 1000 mg every 6 hours and/or ibuprofen 600 mg every 6 hours as needed for headache, body aches and chills. Follow-up if your symptoms worsen significantly or if they fail to start improving within 1 weeks time. <Alina Fields MD - Last Filed: 12/11/23 00:03> Prescriptions: No Action cholecalciferol (vitamin D3) 50 mcg (2,000 unit) tablet 2,000 unit PO DAILY prenat.vits,moris,qrl-ufrh-hbwhk Tablet 1 tab PO QDAY misoprostol 200 mcg tablet 800 mcg PO ONCE Qty: 4 0RF <Alina Fields MD - Last Filed: 12/11/23 00:03> Follow Up/Referrals: Alice Obregon MD [Primary Care Provider] - <Alina Fields MD - Last Filed: 12/11/23 00:03> Stand Alone Forms: MyHealth Info Instructions <Alina Fields MD - Last Filed: 12/11/23 00:03>
--- OUTSIDE RECORDS SUMMARY | 2023-12-10 08:12 | XMS_ITS ---
Author Organization [facility] Address [address] [place] [address] Care Team Providers Care Environmental Health Inspector Name Role Phone Unavailable Unavailable Unavailable Surgery Details Not on file Complications Check Surgery Details section. Procedure Estimated Blood Loss Check Surgery Details section. Procedure Findings Check Surgery Details section. Procedure Specimens Taken Check Surgery Details section.
--- OUTSIDE RECORDS SUMMARY | 2023-12-10 08:12 | XMS_ITS | Referral Summary ---
Author Organization [facility] Address [address] [place] [address] Care Team Providers Care Icing Maker Name Role Phone Unavailable Primary Care Provider Unavailabl e Source Comments Patient records contain information from all sites at [facility]. For routine questions regarding patient records, call [phone] during business hours, M-F 8:00 AM - 5:00 PM Central Time. Record requests for emergency care only can be directed to [phone] at any time.[facility] Allergies No known active allergies Medications Medication [...] (164 lb 10.9 oz) 05/24/2023 5:47 PM FITNESS WORKER Height - - Body Mass Index - - Plan of Treatment Not on file
--- OUTSIDE RECORDS SUMMARY | 2023-12-10 08:12 | XMS_ITS | Clinical Summary ---
Author Organization [facility] Address [address] [place] [address] Care Team Providers Care Crew Boat Operator Name Role Phone Unavailable Primary Care Provider Unavailabl e Source Comments Patient records contain information from all sites at [facility]. For routine questions regarding patient records, call [phone] during business hours, M-F 8:00 AM - 5:00 PM Central Time. Record requests for emergency care only can be directed to [phone] at any time.[facility] Allergies No known active [...] (164 lb 10.9 oz) 05/24/2023 5:47 PM STRATEGY LEAD Height - - Body Mass Index - [...]
[2023-12-10 08:13] LABS: Basophils Absolute Auto 0.03 K/uL (0.00-0.30); Basophils Percent Auto 0.3 % (0.0-3.0); Eosinophils Absolute Auto 0.01 K/uL (0.00-0.50); Eosinophils Percent Auto 0.1 % (0.0-7.0); Hematocrit 37.8 % (33.0-51.0); Hemoglobin* 12.5 gm/dL (12.0-16.0); Lymphocytes Absolute Auto 2.13 K/uL (0.90-2.90); Lymphocytes Percent Auto 21.2 % (20-44); Mean Corpuscular HGB Conc 33 gm/dL (32-36); Mean Corpuscular Hemoglobin 31 pg (26-34); Mean Corpuscular Volume 93 fL (80-100); Monocytes Percent Auto 8.1 % (0.0-11.0); Neutrophils Absolute Auto 7.05 K/uL (1.7-7.0); Neutrophils Percent Auto 70.3 % (42.0-72.0); Platelet Count* 203 K/uL (140-440); RDW Coefficient of Variation % 12.8 % (11.5-15.5); Red Blood Count 4.07 m/uL (4.00-5.20); Slide Review Reflex No; White Blood Count* 10.03 K/uL (4.50-11.00)
[2023-12-10 08:24] LABS: Chloride* 103 mmol/L (96-114); Potassium* 3.7 mmol/L (3.6-5.1); Sodium* 135 mmol/L (135-149)
[2023-12-10 08:27] LABS: Anion Gap 10 mEq/L (7-15); Carbon Dioxide* 22 mmol/L (20-32); Creatinine* 0.7 mg/dL (0.5-1.5); Estimated Glomerular Filt Rate 120 ml/min
[2023-12-10 08:28] LABS: Blood Urea Nitrogen* 8 mg/dL (5-24); Calcium* 9.1 mg/dL (8.4-10.6); Glucose* 114 mg/dL (60-115)
[2023-12-10 08:31] LABS: Appearance Urine Clear (Clear); Bilirubin Urine Negative (Negative); Blood Urine 2+ (Negative); Color Urine Yellow (Yellow); Glucose Urine Negative (Negative); Ketones Urine Negative (Negative); Leukocyte Esterase Urine Negative (Negative); Nitrite Urine Negative (Negative); Protein Urine Negative (Negative); Specific Gravity Urine 1.015 (1.000-1.030); Urobilinogen Urine 0.2 (0.2-1.0); pH Urine 7.5 (5.0-8.5)
[2023-12-10 08:35] LABS: C Reactive Protein* < 0.5 mg/dL (0.5-1.0)
[2023-12-10 08:42] LABS: PCR FLU A Negative PCR FLU A (Negative); PCR FLU B Negative PCR FLU B (Negative); PCR RSV Negative PCR RSV (Negative); SARS PCR* Negative SARS-CoV-2 (Negative)
[2023-12-10 09:10] VITALS: TEMP 37.7
[2023-12-10] MEDS: ACETAMINOPHEN 500 MG TABLET 1000 MG PO (09:10)
[2023-12-10 09:11] VITALS: BP 117/78; PULSE 84; RESP 16; TEMP 37.7; O2SAT 98
[2023-12-10 15:22] LABS: RBC Urine 0-2 (0-2); Squamous Epithelial Cell Urine Few (None-Few); WBC Urine 0-2 (0-5)
== END 2023-12-10 09:50 | disposition home or self-care (01) ==
LOC: ED 08:10
PROVIDERS: Emergency Provider Family Medicine; PCP Family Medicine
DX: R50.9 Fever, unspecified (principal); O03.9 Complete or unspecified spontaneous abortion without complication
CPT/HCPCS: 36415; 80048; 81001; 81003; 84702; 85025; 86140; 87631; 99284; A9270

== ENCOUNTER 2024-06-01 12:42 | Outpatient (CLI) | payer BC, SELFPAY ==
--- NOTE | 2024-06-01 13:00 | CRLHL7_ITS ---
For Patients: As a result of the Cures Act, medical imaging exams and procedure reports are released immediately into your electronic medical record. You may view this report before your referring provider. If you have questions, please contact your health care provider. INDICATION: First trimester scan, establish dates. COMPARISON: None. TECHNIQUE: Real-time howe-scale imaging of the pelvis was performed. FINDINGS: Sonographic imaging demonstrates a single living intrauterine gestation. The embryo demonstrates a regular cardiac rate measuring 176 beats per minute. The embryo`s crown-rump length measurement of 2.3 cm corresponds to a gestational age of 9 weeks 0 days with a sonographic due date of 01/04/2025. There is a normal-appearing yolk sac. There are no gross abnormalities noted within the embryo at this early state of development. The gestational sac has a normal appearance. There is no evidence of a perigestational hemorrhage. The amount of fluid within the sac appears appropriate for gestational age. The cervix is closed. The myometrium appears normal. Corpus luteal cyst right ovary measures 2.3 x 2.1 x 1.8 cm. Unremarkable left ovary. There are no suspicious fluid collections noted in the cul-de-sac. IMPRESSION: Single living intrauterine with sonographic gestational age 9 weeks 0 days and a sonographic due date 01/04/2025. Dictated by Alexi Bruce MD @ 06/01/2024 6:59:40 PM (Electronically Signed)
== END 2024-06-01 12:43 | disposition home or self-care (01) ==
LOC: US 12:44
PROVIDERS: PCP Family Medicine; Visit Provider Physician Assistant
DX: Z34.91 Encounter for supervision of normal pregnancy, unspecified, first trimester (principal); Z3A.09 9 weeks gestation of pregnancy
CPT/HCPCS: 76817; 83021; 86703; 86706; 86803; 86850; 86900; 86901; 87086; 87340; 87491; 87591

== ENCOUNTER 2024-06-01 14:06 | Outpatient (CLI) | payer BC, SELFPAY ==
[2024-06-02 12:53] LABS: Chlamydia DNA Amplified* NOT DETECTED (No Detected); GC DNA Amplified* NOT DETECTED (No Detected)
== END 2024-06-01 14:07 | disposition home or self-care (01) ==
PROVIDERS: PCP Family Medicine; Visit Provider Physician Assistant
DX: Z34.81 Encounter for supervision of other normal pregnancy, first trimester (principal)
CPT/HCPCS: 83020; 83021; 85660; 86592; 86703; 86704; 86706; 86762; 86787; 86803; 86850; 86900; 86901; 87086; 87340; 87491; 87591

== ENCOUNTER 2024-08-07 08:58 | Emergency (ER) | payer BC, SELFPAY ==
--- OUTSIDE RECORDS SUMMARY | 2024-08-07 09:00 | XMS_ITS | Clinical Summary ---
Author Organization [facility] Address [address] [place] [address] Care Team Providers Care Rougher Operator Name Role Phone Unavailable Primary Care Provider Unavailabl e Source Comments Patient records contain information from all sites at [facility]. For routine questions regarding patient records, call [phone] during business hours, M-F 8:00 AM - 5:00 PM Central Time. Record requests for emergency care only can be directed to [phone] at any time.[facility] Allergies No known active allergies Medications cholecalciferol (VITAMIN D3) 10 mcg (400 Unit) tablet Take 2,000 Units by mouth. 11/03/2021 Active vit calc,iron,folic (PRENAT.VITS,CARLIE ,[id number]-NTCV-[id number] ORAL) Take 1 tablet by mouth. 11/03/2021 Active Active Problems No known active problems Social History Tobacco Use Types Packs/Day Years Used Date Smoking Tobacco: Never Passive Smoke Exposure: Never Smokeless Tobacco: Never Tobacco Cessation:Counseling Given: Not Answered Dental Answer Date Recorded Dental: Regular Dentist Unknown 06/24/19 21 Comments No Sex and Gender Information Value Date Recorded Sex Assigned at Not on file Legal Sex Female 1:15 PM CDT Gender Identity Not on file Sexual Orientation Not on file Last Filed Vital Signs Vital Sign Reading Time Taken Comments Blood Pressure 121/80 08/19/2023 5:08 PM CDT Pulse 71 08/19/2023 5:08 PM CDT Temperature 36.1 C (97 F) 08/19/2023 5:08 PM CDT Respiratory Rate - - Oxygen Saturation 100% 08/19/2023 5:08 PM CDT Inhaled Oxygen Concentration - - Weight 74.7 kg (164 lb 10.9 oz) 05/24/2023 5:47 PM WATER HAULER Height - - Body Mass Index - - Plan of Treatment Health Maintenance Due Date Last Done Comments Cervical/Vaginal Cancer Screening 1994 HIV Screening 1994 Hepatitis C Screening 1994 Hepatitis B Vaccines (1 of 3 - 19+ 3-dose series) 2013 COVID-19 Vaccine (3 - 2023-2 5 season) 2023 03/28/2021, 03/07/2021 Influenza Vaccine (#1) 2024 , 03/07/2021, 01/14/2020 Depression Screening (Annual PHQ-2) 04/15/2024 DTaP,Tdap,and Td Vaccines (3 - Td or Tdap) 06/06/2032 06/06/2022, 10/05/2020 HPV Vaccines Aged Out No longer eligi ble based on patient's age to complete this topic IPV Vaccines Aged Out No longer eligi ble based on patient's age to complete this topic Pneumococcal vaccine (0-49 years) Aged Out No longer eligible b ased on patient's age to complete this topic Insurance [facility]
[2024-08-07 09:10] VITALS: BP 118/80; PULSE 92; RESP 16; TEMP 37.1; O2SAT 98
--- NOTE | 2024-08-07 09:26 | ED_ITS ---
HPI - General Adult General Chief complaint: Skin/Abscess/Foreign Body Stated complaint: possible shingles Time Seen by Provider: 08/07/24 09:03 History of Present Illness HPI narrative: Patient is a 28-year-old woman who is 18 weeks comes in today with facial rash on the left side of her face extending from the left side of her scalp to the forehead to the posterior auricular area. She has no drainage or discharge. She is vesicles and mention this to her school nurse today who instructed her to come to the ER to be treated for shingles. Patient has had no fevers no chills no stiff neck no signs of encephalitis. She is otherwise healthy other than being . She takes no medications other than multivitamin. She has had symptoms now for approximately 30 hours. Related Data Home Medications ?Medication ?Instructions ?Recorded ?Confirmed cholecalciferol (vitamin D3) 50 2,000 unit PO DAILY 11/03/21 07/31/24 mcg (2,000 unit) tablet prenat.vits,moris,fgy-kkaq-moalx 1 tab PO QDAY 11/03/21 07/31/24 Previous Rx's ?Medication ?Instructions ?Recorded valacyclovir 1 gram tablet 1,000 mg PO Q8H #21 tabs 08/07/24 Allergies Allergy/AdvReac Type Severity Reaction Status Date / Time No Known Allergies Allergy Verified 07/31/24 08:59 Review of Systems Status of ROS: Reports: 10 or more systems reviewed and unremarkable except as noted in History and below [facility] Medical History Missed ?O02.1 - Missed (ICD-10) Second degree perineal laceration ?O70.1 - Second degree perineal laceration during delivery (ICD-10) Normal echocardiogram (06/2022) Visual disturbance (~06/2022) ?H53.9 - Unspecified visual disturbance (ICD-10) PCOS (polycystic ovarian syndrome) ?E28.2 - Polycystic ovarian syndrome (ICD-10) History of gestational diabetes ?Z86.32 - Personal history of gestational diabetes (ICD-10) History of abnormal cervical Papanicolaou smear ?Z87.42 - Personal history of other diseases of the female genital tract (ICD-10) Surgical History No significant past surgical history Normal spontaneous vaginal delivery (08/13/22) ?O80 - Encounter for full-term uncomplicated delivery (ICD-10) Family History Maternal Grandmother Breast cancer Paternal Grandmother Breast cancer Aunt Breast cancer Family/Other Heart disease 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 Does not drink alcohol Exercise twice a week by walking What is your current living situation?: I presently have a place to live Problems where you live: no known problems In the past 12 months, utilities in danger of being shut off: no In past 12 months, lack of transportation kept you from medical appts, meetings, work, or getting things needed for daily living: no In the past 12 mos, have been you worried that your food would run out before you had money to buy more?: never true In the past 12 mos, the food you bought just didn't last and you didn't have money to buy more?: never true Smoking Status: Never smoker Do you use any of these nicotine containing products: None Second hand tobacco smoke exposure: No How often do you have a drink containing alcohol: never How often do you have six or more drinks on one occasion: Never AUDIT-C Alcohol total score: 0 Non-prescribed substance use: denies use How often does anyone, including family, friends and others, physically hurt you : never How often does anyone, including family, friends and others, insult or talk down to you: never How often does anyone, including family, friends and others, threaten you with harm: never How often does anyone, including family, friends and others, scream or curse at you: never Exam Narrative: Exam Narrative: EXAM GENERAL: Patient appears comfortable and well. EYES: No scleral icterus. ENT: Tympanic membranes and oropharynx normal. THYROID: no thyroid nodules or thyromegaly. LYMPH: No supraclavicular or cervical lymphadenopathy. SKIN: Eruptions as described above on the left side of face and scalp consistent with shingles. Sparing of the ear an tympanic membrane as well as x- ray ear canal. EXT: No dependent lower extremity pedal edema. HEART: Regular rate and rhythm with no murmurs, rubs, or gallops. LUNGS: Clear to auscultation bilaterally with no crackles or wheezes. ABD: Soft, non tender, non distended. PSYCH: Good eye contact, speech is not pressured. Const: Vital Signs, click to edit/add: Vital Signs - 24 hr 08/07/24 09:10 Temperature 98.8 F Pulse Rate [Pulse Oximeter] 92 Respiratory Rate 16 Blood Pressure [Ri ght Upper Arm] 118/80 Pulse Oximetry 98 Oxygen Delivery Me thod Room Air Course Course ED Course: Patient seen and examined. She will be treated with valacyclovir 1 g 3 times a day for 7 days and will keep her outpatient follow-up OBGYN. Topical treatment with calamine lotion. Up as directed. Vital Signs Vital signs: Initial Vital Signs Temperature 98.8 F 08/07/24 09:10 Temperature Source Temporal Artery Scan 08/07/24 09:10 Pulse Rate 92 08/07/24 09:10 Respiratory Rate 16 08/07/24 09:10 Blood Pressure 118/80 08/07/24 09:10 Blood Pressure Mean 92 08/07/24 09:10 Pulse Oximetry 98 08/07/24 09:10 Oxygen Delivery Method Room Air 08/07/24 09:10 Vital Signs Temperature 98.8 F 08/07/24 09:10 Pulse Rate 92 08/07/24 09:10 Respiratory Rate 16 08/07/24 09:10 Blood Pressure 118/80 08/07/24 09:10 Pulse Oximetry 98 08/07/24 09:10 Oxygen Delivery Method Room Air 08/07/24 09:10 Temperature 98.8 F 08/07/24 09:10 Pulse Rate 92 08/07/24 09:10 Respiratory Rate 16 08/07/24 09:10 Blood Pressure 118/80 08/07/24 09:10 Pulse Oximetry 98 08/07/24 09:10 Oxygen Delivery Method Room Air 08/07/24 09:10 Medical Decision Making MDM Narrative Medical decision making narrative: Patient presents with signs of shingles and will be treated with valacyclovir as noted above. Calamine lotion. Follow-up as needed. Discharge Plan Discharge Clinical Impression: Herpes zoster Patient Disposition: Home, Self-Care Condition: Stable Instructions: Shingles (ED) Additional Instructions: Valacyclovir as directed. Calamine lotion as directed Follow-up with your doctor as needed. Prescriptions: New valacyclovir 1 gram tablet 1,000 mg PO Q8H Qty: 21 0RF No Action cholecalciferol (vitamin D3) 50 mcg (2,000 unit) tablet 2,000 unit PO DAILY prenat.vits,moris,wsi-ewuf-esiwg Tablet 1 tab PO QDAY Follow Up/Referrals: Alice Obregon MD [Primary Care Provider] - Stand Alone Forms: [employer] Info Instructions
--- OUTSIDE RECORDS SUMMARY | 2024-08-07 09:43 | XMS_ITS | Clinical Summary ---
Author Organization [facility] Address [address] [place] [address] Care Team Providers Care Energy Project Manager Name Role Phone Unavailable Primary Care Provider Unavailabl e Source Comments Patient records contain information from all sites at [facility]. For routine questions regarding patient records, call [phone] during business hours, M-F 8:00 AM - 5:00 PM Central Time. Record requests for emergency care only can be directed to [phone] at any time.[facility] Allergies No known active allergies Medications cholecalciferol (VITAMIN D3) 10 mcg (400 Unit) tablet Take 2,000 Units by mouth. 11/03/2021 Active vit calc,iron,folic (PRENAT.VITS,CARLIE ,QSP-SMKT-ERDOE ORAL) Take 1 tablet by mouth. 11/03/2021 [...] (164 lb 10.9 oz) 05/24/2023 5:47 PM [employer] ME[employer]IC Height - - Body Mass Index - [...] patient's age to complete this topic Insurance [facility]
== END 2024-08-07 09:56 | disposition home or self-care (01) ==
LOC: ED 09:41
PROVIDERS: Emergency Provider Internal Medicine; PCP Family Medicine
DX: B02.9 Zoster without complications (principal); Z3A.18 18 weeks gestation of pregnancy
CPT/HCPCS: 99283

== ENCOUNTER 2024-08-17 13:49 | Outpatient (CLI) | payer BC, SELFPAY ==
--- NOTE | 2024-08-17 14:00 | CRLHL7_ITS ---
For Patients: As a result of the 21st Century Cures Act, medical imaging exams and procedure reports are released immediately into your electronic medical record. You may view this report before your referring provider. If you have questions, please contact your health care provider. OB ULTRASOUND SURVEY BENI by LMP: 01/04/2025. GA: 20 w, 0 d. INDICATION: anatomy survey. TECHNIQUE: Real time grayscale imaging of the fetus was performed. Evaluate anatomy. Transabdominal. position: Breech. Cervix: Visualized. Technique: Transabdominal. Length of closed cervix: 4 cm. Placenta/cord: Posterior. Technique: Transabdominal. Placenta tip to internal OS: 2.8 cm. Umbilical Cord: 3-vessel cord. Placenta insertion: Central. Amniotic Fluid: 4.8 cm SDP (greater than/equal to: 2- less than 8 cm). SURVEY: Observed Structures. Calvarium/Spine: Cerebellum: 2 cm, 20 w 3 d. Cisterna Magna: 3.8 mm. Nuchal Fold: 4.3 mm. Lateral Ventricle: 5.6 mm. CSP: Yes. Midline Falx: Yes. Choroid Plexus: Yes. Spine: Yes. Abdomen: Stomach: Yes. Abd Cord Insertion: Yes. Urinary Bladder: Yes. Kidneys: Yes. Diaphragm: Yes. Face: Nose/lips: Yes. Orbital view: Yes. Profile: Yes. Limbs: Upper Extremities: Yes. Lower Extremities: Yes. Hands: Yes. Feet: Yes. Vascular: 4-Chamber Heart: Yes. LVOT: Yes. RVOT: Yes. 3VV: Yes. 3VTV: Yes. BPD: 4.4 cm. 19 w, 3 d, 25 percent. HC: 16.9 cm. 19 w, 4 d, 23 percent. AC: 15.5 cm. 20 w, 4 d, 66 percent. FL: 3.2 cm. 19 w, 6 d, 37 percent. FL/AC ratio: 20.52 percent. HC/AC ratio: 1.10. heart rate: 137 bpm. age by this US: 20 w, 0 d. BENI by this US: 01/04/2025. EFW: 337 g. Weight: 12 oz. Percentile by BENI: 56 percent. IMPRESSION: 1. Concordance of clinical and sonographic dating. 2. Normal anatomic survey. Alexi Bruce M.D. Diagnostic Radiologist [email or web address] DEEPTHI/jpatsy jj/Dictated by: Alexi Bruce MD @ 08/17/2024 3:56:00 PM (Electronically Signed)
== END 2024-08-17 13:50 | disposition home or self-care (01) ==
LOC: US 13:50
PROVIDERS: PCP Family Medicine; Visit Provider Obstetrics & Gynecology
DX: Z34.92 Encounter for supervision of normal pregnancy, unspecified, second trimester (principal); Z3A.20 20 weeks gestation of pregnancy
CPT/HCPCS: 76805

== ENCOUNTER 2024-10-13 09:16 | Outpatient (CLI) | payer BC, SELFPAY | END 2024-10-13 09:17 | disposition home or self-care (01) | LOC: NFLDREF 10-15 17:08 | PROVIDERS: PCP Family Medicine; Referring Provider Family Medicine; Visit Provider Obstetrics & Gynecology | DX: Z34.83 Encounter for supervision of other normal pregnancy, third trimester (principal) | CPT/HCPCS: 86592 ==

== ENCOUNTER 2024-12-11 08:59 | Outpatient (CLI) | payer BC, SELFPAY ==
--- NOTE | 2024-12-11 09:15 | CRLHL7_ITS ---
For Patients: As a result of the Century Cures Act, medical imaging exams and procedure reports are released immediately into your electronic medical record. You may view this report before your referring provider. If you have questions, please contact your health care provider. OB ULTRASOUND FOLLOW-UP/LIMITED, 12/11/2024 CLINICAL HISTORY: Uterine size/date discrepancy. COMPARISON: 08/17/2024. TECHNIQUE: Real time howe scale imaging of the fetus was performed. Transabdominal imaging performed. FINDINGS: LMP: 04/09/2024. BENI by LMP: 01/04/2025. GA: 36 weeks 4 days. Cervix: Not visualized. Positioning: Vertex. Amniotic Fluid: 5.6 cm SDP. Placenta: Technique: TA. Placenta Position: Posterior. Dopplers: Heart Rate: 169 bpm. BIOMETRY BPD: 8.8 cm, 35 weeks 3 days. 30% HC: 31.6 cm, 35 weeks 3 days. 6% AC: 34.4 cm, 38 weeks 2 days. 95% FL: 6.9 cm, 35 weeks 4 days. 21% FL/AC Ratio: 20.12% HC/AC Ratio: 0.92. EFW: 3085 grams, 6 lb 13 oz. age by this US: 36 weeks 1 day. BENI by this US: 01/07/2025. Percentile by BENI: 65% IMPRESSION: 1. Sonographic gestational age 36 weeks 1 day and sonographic due date 01/07/2025. Good correlation with dates. Normal interval growth. 2. Estimated weight 66th percentile. Abdominal circumference 95th percentile. Alexi Bruce M.D. Diagnostic Radiologist [email or web address] Transcribed: 1:26 pm DW/Dictated by: Alexi Bruce MD @ 12/11/2024 11:44:00 AM (Electronically Signed)
== END 2024-12-11 09:00 | disposition home or self-care (01) ==
LOC: US 08:59
PROVIDERS: PCP Family Medicine; Visit Provider Obstetrics & Gynecology
DX: O26.843 Uterine size-date discrepancy, third trimester (principal); Z3A.36 36 weeks gestation of pregnancy
CPT/HCPCS: 76816

== ENCOUNTER 2024-12-11 11:04 | Outpatient (CLI) | payer BC, SELFPAY ==
[2024-12-12 11:26] LABS: Strep B DNA Probe Negative (Negative)
[2024-12-12 12:08] LABS: Strep B Susceptibility Needed? No
== END 2024-12-11 11:05 | disposition home or self-care (01) ==
PROVIDERS: PCP Family Medicine; Visit Provider Obstetrics & Gynecology
DX: Z34.93 Encounter for supervision of normal pregnancy, unspecified, third trimester (principal); Z3A.36 36 weeks gestation of pregnancy; O26.843 Uterine size-date discrepancy, third trimester; O26.849 Uterine size-date discrepancy, unspecified trimester
CPT/HCPCS: 87081; 87653

== ENCOUNTER 2025-01-04 10:13 | Inpatient (IN) | payer BC, SELFPAY ==
[2025-01-04] VITALS (96 sets, daily range): BP systolic 90–135; BP diastolic 50–87; PULSE 68–121; RESP 12–18; TEMP 36.8–37.2; O2SAT 94–100; BMI 35.6
[2025-01-04 11:28] LABS: Hematocrit* 35.1 % (33.0-51.0); Hemoglobin* 11.6 gm/dL (12.0-16.0); Immature Granulocytes Abs Auto 0.01 K/uL (0.00-0.30); Immature Granulocytes Pct Auto 0.2 %; Lymphocytes Absolute Auto 1.65 K/uL (0.90-2.90); Mean Corpuscular HGB Conc 33 gm/dL (32-36); Mean Corpuscular Hemoglobin 31 pg (26-34); Mean Corpuscular Volume 94 fL (80-100); RDW Coefficient of Variation % 14.1 % (11.5-15.5); Red Blood Count* 3.74 m/uL (4.00-5.20); White Blood Count* 6.42 K/uL (4.50-11.00)
[2025-01-04 11:44] LABS: Slide Review Reflex No
[2025-01-04] MEDS: LACTATED RINGERS 1000 ML 1,000 ML 123 ML IV (12:35)
[2025-01-04] MEDS: OXYTOCIN 30 unit/500 ML in NS 30 UNIT/500 ML BAG IVPB (12:36)
--- NOTE | 2025-01-04 14:20 | P.LDBA_ITS ---
Subjective History of Present Illness Date Seen: 01/04/25 Narrative: Patient is being admitted to Labor and Delivery for elective induction of labor. She is a 29 year old at 40 0/7 weeks gestation. Her full history and physical was dictated by Dr. Campos on 12/16/24. Please see this for details. Specific Issues/Plans Partner: H&P: CGM on 12/16/24 [employer]: Low risk fetus, negative carrier screen. # history of gestational diabetes, diet controlled,1st * A1c: 5.2 * 1-h glucose screen: normal at 137mg/dL! # HepB non immune, low risk - deferred vaccine on 07/31 # Shingles on left face * Seen in ER on 08/07/24, treated with valacyclovir Imagin08/17/2024 FAS: Normal FAS. EFW 337g at 56%ile - BPD 25%, HC 23%, AC 66%ile and FL 37%. MVP 4.8cm. Posterior placenta, no previa/low lying. Cx 4cm. 12/11/2024: Vertex, EFW 6 lb 13 oz (65%), BPD 30%, HC 6%, AC 95%, FL 21%, SDP 5.6 cm. Vaccinations: COVID: Declines Flu: Declines Tdap: 10/28/24 RSV: N/A 32 week mental health: 11/10/24 Last pap: 10/05/2022, NIL/-HPV OB - Problem Based A/P Additional Plan (1) : Status: Acute (2) Encounter for induction of labor: Status: Acute Delivery/Labor/Induction Plan Plan: induction Induction method: per pitocin protocol OB Result Labs Blood Type: O (+) positive Rubella: immune RPR/VDLR: nonreactive GBS Status: negative HBsAG: negative OB Exam Physical Exam Vital signs: Temp Pulse Resp BP Pulse Ox 98.7 F 96 12 119/64 100 01/04/25 11:57 01/04/25 14:05 01/04/25 12:42 01/04/25 14:05 01/04/25 12:41 Detailed Labor and Delivery Exam Patient Gravid: yes Dilation (cm): 2 Effacement (%): 60 Cervix position: mid Consistency: soft Cervical ripeness score: 6 Fetus (Single) Station: -2
[2025-01-04] MEDS: LACTATED RINGERS 1000 ML 1,000 ML 119 ML IV (15:48)
[2025-01-04] MEDS: ROPIVACAINE 0.2% 100 ml 100 ML 10 MG EPIDURAL (16:07)
[2025-01-04] MEDS: LIDOCAINE 2% (PF) 5 ML VIAL EPIDURAL (16:07)
--- NOTE | 2025-01-04 16:13 | PM.ANBPRC ---
[facility] Medical History Missed ?O02.1 - Missed (ICD-10) Second degree perineal laceration ?O70.1 - Second degree perineal laceration during delivery (ICD-10) Normal echocardiogram (06/2022) Visual disturbance (~06/2022) ?H53.9 - Unspecified visual disturbance (ICD-10) PCOS (polycystic ovarian syndrome) ?E28.2 - Polycystic ovarian syndrome (ICD-10) History of gestational diabetes ?Z86.32 - Personal history of gestational diabetes (ICD-10) History of abnormal cervical Papanicolaou smear ?Z87.42 - Personal history of other diseases of the female genital tract (ICD-10) Surgical History No significant past surgical history Normal spontaneous vaginal delivery (08/13/22) ?O80 - Encounter for full-term uncomplicated delivery (ICD-10) Family History Maternal Grandmother Breast cancer Paternal Grandmother Breast cancer Aunt Breast cancer Family/Other Heart disease 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 Does not drink alcohol Exercise twice a week by walking What is your current living situation?: I presently have a place to live Problems where you live: no known problems In the past 12 months, utilities in danger of being shut off: no In past 12 months, lack of transportation kept you from medical appts, meetings, work, or getting things needed for daily living: no In the past 12 mos, have been you worried that your food would run out before you had money to buy more?: never true In the past 12 mos, the food you bought just didn't last and you didn't have money to buy more?: never true Smoking Status: Never smoker Do you use any of these nicotine containing products: None Second hand tobacco smoke exposure: No How often do you have a drink containing alcohol: never How often do you have six or more drinks on one occasion: Never AUDIT-C Alcohol total score: 0 Non-prescribed substance use: denies use How often does anyone, including family, friends and others, physically hurt you: never How often does anyone, including family, friends and others, insult or talk down to you: never How often does anyone, including family, friends and others, threaten you with harm: never How often does anyone, including family, friends and others, scream or curse at you: never Meds Home Medications and Allergies Home Medications ?Medication ?Instructions ?Recorded ?Confirmed ?Type cholecalciferol (vitamin D3) 50 2,000 unit PO DAILY 11/03/21 01/04/25 History mcg (2,000 unit) tablet prenat.vits,moris,bus-dezi-euhrc 1 tab PO QDAY 11/03/21 01/04/25 History Allergies Allergy/AdvReac Type Severity Reaction Status Date / Time No Known Allergies Allergy Verified 12/31/24 15:00 Results Labs Labs: Laboratory Results - last 24 hr 01/04/25 11:06 WBC 6.42 RBC 3.74 L Hgb 11.6 L Hct 35.1 MCV 94 MCH 31 MCHC 33 RDW Coeff of Sven 14.1 Plt Count 185 Neut % (Auto) 64.1 Lymph % (Auto) 25.7 [place] % (Auto) 8.7 Eos % (Auto) 1.1 Baso % (Auto) 0.2 Neut # (Auto) 4.12 Lymph # (Auto) 1.65 [place] # (Auto) 0.60 Eos # (Auto) 0.07 Baso # (Auto) 0.01 Abs Immat Gran (auto) 0.01 Imm/Tot Granulo (auto) 0.2 Blood Type O Positive Antibody Screen NEGATIVE Vital Signs Vital Signs: Last Vital Signs Temp 98.8 F 01/04/25 14:20 Pulse 99 01/04/25 16:10 Resp 18 01/04/25 14:20 BP 104/70 01/04/25 16:10 Pulse Ox 99 01/04/25 16:11 Weight: 94.347 kg Height: 162.56 cm Anesthesia Procedures Epidural Insertion Patient Location: OB Start Time: 15:45 Stop Time: 16:20 Start Date: 01/04/25 Stop Date: 01/04/25 Reason for Block: primary anesthetic Patient Position: sitting Performed By: Dashawn Holden Preanesthetic Checklist: IV checked, risks and benefits discussed, surgical consent, monitors and equipment checked, pre-op evaluation, timeout performed and anesthesia consent Prep: chlorhexidine gluconate Monitoring: blood pressure monitoring, surveillance system monitor, continuous pulse oximetry and heart rate Approach: midline Vertebral Space: lumbar (1-5) Needle Type: Tuohy needle Injection Technique: continuous catheter (catheter) Needle gauge: 17 Needle Length (cm): 10 cm Needle Insertion Depth (cm): 7 Catheter Gauge: 19 Catheter Type: multi-orifice Catheter at skin depth (cm): 12 Test Dose Result: negative and lidocaine 1.5% with epinephrine 1 to 200,000
[2025-01-04] MEDS: LIDOCAINE 1 % PF 30 ML INJECTION (18:34)
[2025-01-04] MEDS: miSOPROStoL 800 MCG/4 TABLET PR (18:37)
--- NOTE | 2025-01-04 18:46 | W.PM.OBVAGDE ---
OB Procedure Vag Delivery Mother Details Mother Details: The patient is a 29 year-old, 4, Para 2011, admitted on 01/04/25 at 40 0/7 weeks gestation for elective induction of labor. Yap score was 6 on admission, cervix 2/60/-2. Induction was initiated with IV pitocin. : 4 Para: 2 Weeks Gestation: 40.0 Admission Date: 01/04/25 Additional Details Amniotic Membrane Status: intact Amniotic Membrane Rupture Date: 01/04/25 (spontaeous) Amniotic Membrane Rupture Time: 14:19 Amniotic Membrane Fluid Description: Clear Analgesia/Anesthesia Type: Epidural Waterbirth: No Pitcoin: Yes Intrapartal Events: Labor Induction Induction Method: per pitocin protocol Labor Onset: 15:30 Complete: 17:52 Pushin:06 Heart: heart tones during second stage were 120's and discontinuous. Delivery Details Delivery Date: 01/04/25 Delivery Time: 18:04 Route of delivery: Gender: Female Viability: Alive; Heart Rate Present Position at Delivery: OA Delivery Details: Delivered via spontaneous vaginal delivery. There was a brief apparent shoulder dystocia that resolved with maternal repositioning from lithotomy to supine. was placed on maternal abdomen.? Cord was clamped and cut after a 30-60 second delay. Nose and mouth were bulb suctioned.? weight pending. 1 Minute Interval Total Score: 8 5 Minute Interval Total Score: 9 Additional Details Shoulder Dystocia: No Placenta Delivery Time: 18:08 Placental Delivery Description: Spontaneous Delivery repair: Chromic Procedure Done: Global Blood Loss: 1,250 (IV pitocin and rectal misoprostol 800 mcg administered) Laceration: Perineal - 2nd Degree (also, right vulvar abrasion that required oversewing with 3-0 chromic in a running locking fashion for hemostasis) Episiotomy Description: None Blood Loss Measurement Type: EBL (delivery and placental delivery were so rapid that measurement of amniotic fluid in bag was not done prior to delivery of placenta and couldn't be subtracted) Bakri Used: No Sponge/Need Count Correct: Yes Cord Vessel Description: 3 Vessels Event Summary Status: Mother and infant were stable after delivery. Disposition: floor
[2025-01-04] MEDS: IBUPROFEN 600 MG TABLET PO (23:53)
[2025-01-05] MEDS: LANOLIN CREAM 1 APPLIC TOPICAL (00:11)
[2025-01-05 00:59] VITALS: BP 108/67; PULSE 85; RESP 16; TEMP 37.4; O2SAT 97
[2025-01-05 04:35] VITALS: BP 103/69; PULSE 73; RESP 16; TEMP 36.7; O2SAT 96
[2025-01-05 07:33] LABS: Hemoglobin* 9.3 gm/dL (12.0-16.0)
--- NOTE | 2025-01-05 08:37 | P.DS_ITS ---
DS: Providers Provider Date Seen: 01/05/25 Date of admission: 01/04/25 10:13 Primary care physician: Alice Obregon MD Admitting Clinician: Aysa Hassan MD Attending Physician on discharge: Daniel Odom CNM Date of Discharge: 01/05/25 DS: Diagnosis Discharge Diagnosis (1) care and examination of lactating mother: Status: Acute Exam Narrative: Exam Narrative: VSS, afebrile GENERAL APPEARANCE: ?normal affect, alert, no distress MOOD: ?appropriate HEENT: normocephalic, neck supple, full ROM CHEST: ?Symmetrical chest wall movement. ?Normal respiratory effort. ?Clear to auscultation HEART: ?regular rate and rhythm ABDOMEN: ?soft, non-tender. Uterine fundus is firm, at Umbilicus, Midline and is appropriate for the stage of recovery. ?Bowel sounds present. PERINEUM: ?mild edema of the perineum, there is a 2nd degree laceration that is healing well. EXTREMITIES: ?normal and trace edema Const: Vital Signs, click to edit/add: Vital Signs - 24 hr 01/04/25 10:20 01/04/25 11:57 01/04/25 11:57 Temperature 98.7 F Pulse Rate 120 H 96 Pulse Rate [Pulse Oximeter] Respiratory Rate 12 Blood Pressure 121/80 120/68 Blood Pressure [Le ft Arm] Pulse Oximetry 98 Oxygen Delivery [facility] 01/04/25 12:41 01/04/25 12:42 01/04/25 12:42 Temperature Pulse Rate 108 H Pulse Rate [Pulse Oximeter] Respiratory Rate 12 Blood Pressure 122/70 Blood Pressure [Le ft Arm] Pulse Oximetry [facility] 01/04/25 14:05 01/04/25 14:20 01/04/25 15:24 Temperature 98.8 F Pulse Rate 96 97 Pulse Rate [Pulse Oximeter] Respiratory Rate 18 Blood Pressure 119/64 120/77 Blood Pressure [Le ft Arm] Pulse Oximetry [facility] 01/04/25 15:51 01/04/25 15:56 01/04/25 16:01 Temperature Pulse Rate 92 Pulse Rate [Pulse Oximeter] Respiratory Rate Blood Pressure 129/70 Blood Pressure [Le ft Arm] Pulse Oximetry 100 100 100 Oxygen Delivery [facility] 01/04/25 16:04 01/04/25 16:06 01/04/25 16:08 Temperature Pulse Rate 88 96 93 Pulse Rate [Pulse Oximeter] Respiratory Rate Blood Pressure 128/77 122/75 129/69 Blood Pressure [Le ft Arm] Pulse Oximetry 100 [facility] 01/04/25 16:10 01/04/25 16:11 01/04/25 16:13 Temperature Pulse Rate 99 102 H Pulse Rate [Pulse Oximeter] Respiratory Rate Blood Pressure 104/70 133/66 Blood Pressure [Le ft Arm] Pulse Oximetry 99 [facility] 01/04/25 16:16 01/04/25 16:18 01/04/25 16:20 Temperature Pulse Rate 90 90 Pulse Rate [Pulse Oximeter] Respiratory Rate Blood Pressure 124/61 119/56 L Blood Pressure [Le ft Arm] Pulse Oximetry 98 [facility] 01/04/25 16:21 01/04/25 16:22 01/04/25 16:24 Temperature Pulse Rate 88 89 Pulse Rate [Pulse Oximeter] Respiratory Rate Blood Pressure 112/56 L 130/58 L Blood Pressure [Le ft Arm] Pulse Oximetry 98 [facility] 01/04/25 16:26 01/04/25 16:31 01/04/25 16:33 Temperature Pulse Rate 89 88 Pulse Rate [Pulse Oximeter] Respiratory Rate Blood Pressure 126/65 117/56 L Blood Pressure [Le ft Arm] Pulse Oximetry 98 98 [facility] 01/04/25 16:36 01/04/25 16:39 01/04/25 16:41 Temperature Pulse Rate 83 Pulse Rate [Pulse Oximeter] Respiratory Rate Blood Pressure 117/56 L Blood Pressure [Le ft Arm] Pulse Oximetry 99 99 [facility] 01/04/25 16:42 01/04/25 16:45 01/04/25 16:46 Temperature Pulse Rate 88 88 Pulse Rate [Pulse Oximeter] Respiratory Rate Blood Pressure 126/59 L 122/59 L Blood Pressure [Le ft Arm] Pulse Oximetry 99 [facility] 01/04/25 16:47 01/04/25 16:49 01/04/25 16:51 Temperature Pulse Rate 84 93 90 Pulse Rate [Pulse Oximeter] Respiratory Rate Blood Pressure 90/52 L 98/56 L 99/54 L Blood Pressure [Le ft Arm] Pulse Oximetry 97 [facility] 01/04/25 16:53 01/04/25 16:55 01/04/25 16:56 Temperature Pulse Rate 93 94 Pulse Rate [Pulse Oximeter] Respiratory Rate Blood Pressure 104/51 L 105/56 L Blood Pressure [Le ft Arm] Pulse Oximetry 97 Oxygen Delivery [facility] 01/04/25 16:56 01/04/25 16:57 01/04/25 16:59 Temperature 98.4 F Pulse Rate 95 90 Pulse Rate [Pulse Oximeter] Respiratory Rate 18 Blood Pressure 104/57 L 113/57 L Blood Pressure [Le ft Arm] Pulse Oximetry [facility]xygen Delivery [facility] 01/04/25 17:01 01/04/25 17:03 01/04/25 17:05 Temperature Pulse Rate 93 95 97 Pulse Rate [Pulse Oximeter] Respiratory Rate Blood Pressure 106/54 L 109/53 L 98/50 L Blood Pressure [Le ft Arm] Pulse Oximetry Oxygen Delivery [facility] 01/04/25 17:07 01/04/25 17:09 01/04/25 17:11 Temperature Pulse Rate 96 92 93 Pulse Rate [Pulse Oximeter] Respiratory Rate Blood Pressure 101/50 L 92/55 L 97/53 L Blood Pressure [Le ft Arm] Pulse Oximetry 95 Oxygen Delivery [facility] 01/04/25 17:12 01/04/25 17:13 01/04/25 17:15 Temperature Pulse Rate 92 81 Pulse Rate [Pulse Oximeter] Respiratory Rate Blood Pressure 104/54 L 104/55 L Blood Pressure [Le ft Arm] Pulse Oximetry 94 Oxygen Delivery [facility] 01/04/25 17:16 01/04/25 17:17 01/04/25 17:19 Temperature Pulse Rate 87 89 Pulse Rate [Pulse Oximeter] Respiratory Rate Blood Pressure 111/54 L 108/69 Blood Pressure [Le ft Arm] Pulse Oximetry 96 94 Oxygen Delivery [facility] 01/04/25 17:21 01/04/25 17:23 01/04/25 17:25 Temperature Pulse Rate 87 87 82 Pulse Rate [Pulse Oximeter] Respiratory Rate Blood Pressure 110/62 100/56 L 93/50 L Blood Pressure [Le ft Arm] Pulse Oximetry 100 Oxygen Delivery [facility] 01/04/25 17:29 01/04/25 17:31 01/04/25 17:32 Temperature Pulse Rate 75 82 Pulse Rate [Pulse Oximeter] Respiratory Rate Blood Pressure 93/51 L 101/59 L Blood Pressure [Le ft Arm] Pulse Oximetry 96 Oxygen Delivery [facility] 01/04/25 17:33 01/04/25 17:35 01/04/25 17:37 Temperature Pulse Rate 76 68 76 Pulse Rate [Pulse Oximeter] Respiratory Rate Blood Pressure 95/55 L 106/56 L 113/65 Blood Pressure [Le ft Arm] Pulse Oximetry 98 Oxygen Delivery [facility] 01/04/25 17:42 01/04/25 17:47 01/04/25 17:52 Temperature Pulse Rate 85 86 Pulse Rate [Pulse Oximeter] Respiratory Rate Blood Pressure 102/58 L 105/57 L Blood Pressure [Le ft Arm] Pulse Oximetry 97 97 99 Oxygen Delivery [facility] 01/04/25 17:57 01/04/25 17:58 01/04/25 18:02 Temperature Pulse Rate 102 H Pulse Rate [Pulse Oximeter] Respiratory Rate Blood Pressure 135/87 Blood Pressure [Le ft Arm] Pulse Oximetry 98 100 Oxygen Delivery [facility] 01/04/25 18:07 01/04/25 18:09 01/04/25 18:09 Temperature 98.9 F Pulse Rate 91 Pulse Rate [Pulse Oximeter] Respiratory Rate 18 Blood Pressure 111/52 L Blood Pressure [Le ft Arm] Pulse Oximetry 98 [facility] 01/04/25 18:12 01/04/25 18:17 01/04/25 18:22 Temperature Pulse Rate Pulse Rate [Pulse Oximeter] Respiratory Rate Blood Pressure Blood Pressure [Le ft Arm] Pulse Oximetry 99 99 98 Oxygen Delivery [facility] 01/04/25 18:24 01/04/25 18:24 01/04/25 18:27 Temperature Pulse Rate 102 H Pulse Rate [Pulse Oximeter] Respiratory Rate 18 Blood Pressure 116/58 L Blood Pressure [Le ft Arm] Pulse Oximetry 100 Oxygen Delivery [facility] 01/04/25 18:32 01/04/25 18:37 01/04/25 18:38 Temperature Pulse Rate 84 Pulse Rate [Pulse Oximeter] Respiratory Rate Blood Pressure 123/60 Blood Pressure [Le ft Arm] Pulse Oximetry 99 100 Oxygen Delivery [facility] 01/04/25 18:38 01/04/25 18:42 01/04/25 18:47 Temperature Pulse Rate Pulse Rate [Pulse Oximeter] Respiratory Rate 18 Blood Pressure Blood Pressure [Le ft Arm] Pulse Oximetry 100 98 Oxygen Delivery [facility] 01/04/25 18:52 01/04/25 18:53 01/04/25 18:53 Temperature Pulse Rate 85 Pulse Rate [Pulse Oximeter] Respiratory Rate 18 Blood Pressure 111/67 Blood Pressure [Le ft Arm] Pulse Oximetry 99 Oxygen Delivery [facility] 01/04/25 18:57 01/04/25 19:02 01/04/25 19:07 Temperature Pulse Rate Pulse Rate [Pulse Oximeter] Respiratory Rate Blood Pressure Blood Pressure [Le ft Arm] Pulse Oximetry 99 98 98 Oxygen Delivery [facility] 01/04/25 19:08 01/04/25 19:08 01/04/25 19:12 Temperature Pulse Rate 82 Pulse Rate [Pulse Oximeter] Respiratory Rate 16 Blood Pressure 118/68 Blood Pressure [Le ft Arm] Pulse Oximetry 98 Oxygen Delivery [facility] 01/04/25 19:17 01/04/25 19:22 01/04/25 19:23 Temperature Pulse Rate 86 Pulse Rate [Pulse Oximeter] Respiratory Rate Blood Pressure 114/66 Blood Pressure [Le ft Arm] Pulse Oximetry 99 99 Oxygen Delivery [facility] 01/04/25 19:23 01/04/25 19:27 01/04/25 19:32 Temperature Pulse Rate Pulse Rate [Pulse Oximeter] Respiratory Rate 16 Blood Pressure Blood Pressure [Le ft Arm] Pulse Oximetry 99 100 Oxygen Delivery [facility] 01/04/25 19:37 01/04/25 19:38 01/04/25 19:38 Temperature 98.3 F Pulse Rate 86 Pulse Rate [Pulse Oximeter] Respiratory Rate 16 Blood Pressure 123/69 Blood Pressure [Le ft Arm] Pulse Oximetry 99 Oxygen Delivery [facility] 01/04/25 19:42 01/04/25 19:47 01/04/25 19:52 Temperature Pulse Rate Pulse Rate [Pulse Oximeter] Respiratory Rate Blood Pressure Blood Pressure [Le ft Arm] Pulse Oximetry 99 100 100 Oxygen Delivery [facility] 01/04/25 19:53 01/04/25 19:53 01/05/25 00:59 Temperature 98.3 F 99.3 F Pulse Rate 80 Pulse Rate [Pulse Oximeter] 85 Respiratory Rate 16 16 Blood Pressure 110/62 Blood Pressure [Le ft Arm] 108/67 Pulse Oximetry 97 Oxygen Delivery [facility] Room [facility] 01/05/25 04:35 Temperature 98.0 F Pulse Rate Pulse Rate [Pulse Oximeter] 73 Respiratory Rate 16 Blood Pressure Blood Pressure [Le ft Arm] 103/69 Pulse Oximetry 96 Oxygen Delivery [facility] Room Air OB - DS: Summary Hospital Course Hospital Course: Shilpa is a 29 y.o. who was admitted to [facility] for induction of labor. ?She had an uncomplicated NVD.?The patient feels well. ?The pain is well controlled with current medications. ?She has no new complaints. ?She is breast feeding and reports things are going well.? the patient has done well.? Vitals have been stable.? She has remained afebrile.? Has a good appetite, is tolerating a general diet. ?She is voiding without difficulty.? She is passing gas and has not had a bowel movement.? She is ambulating and denies any dizziness.? Has Small amount of rubra lochia. ?She is undecided on her plan for prevention. She is requesting discharge today at 24 hours. Peripartum Data Infant delivery method: Vaginal Laceration description: Perineal - 2nd Degree Gender: Female Infant Discharge Plan: Home Status at Discharge Functional status at discharge: independent ambulation Overall status at discharge: patient is progressing back to baseline Time Spent with Patient Time attestation: Total time spent providing and/or coordinating discharge services: Time spent: Less than 30 minutes Discharge Plan Discharge Disposition: Home, Self-Care Date of Admission: 01/04/25 10:13 Attending Provider on Discharge: Daniel Odom Primary Care Provider: Alice Obregon Condition: Stable Anticipated Discharge Date/Time: 01/05/25 20:00 Discharge Medications: New acetaminophen 500 mg Tablet 1,000 mg PO Q6H PRNQty: 0 0RF docusate sodium 100 mg Capsule 100 mg PO DAILY Qty: 90 0RF ferrous sulfate 325 mg (65 mg iron) Tablet 325 mg PO Q48H Qty: 30 0RF ibuprofen 600 mg Tablet 600 mg PO Q6H PRNQty: 60 0RF Continued cholecalciferol (vitamin D3) 50 mcg (2,000 unit) tablet 2,000 unit PO DAILY prenat.vits,moris,[id number] Tablet 1 tab PO QDAY Discharge Orders: Discharge Order (Routine); Ordered 01/05/25 Ordered By: Daniel Odom Patient Education: OB Over the Counter Medication Information, OB Vaginal/Breast Feeding Activity Level: Activity as Tolerated Discharge Diet: Regular Follow Up Appointments: Alice Obregon MD [Primary Care Provider, Family Practice] [facility] [Provider Group] Forms: Patient Belongings, MyHealth Info Instructions
[2025-01-05] MEDS: IBUPROFEN 600 MG TABLET PO ×2 (08:55→15:13)
[2025-01-05] MEDS: FERROUS SULFATE 325 MG TABLET PO (08:56)
[2025-01-05] MEDS: DOCUSATE SODIUM 100 MG CAPSULE PO (08:56)
[2025-01-05 11:00] VITALS: BP 102/68; PULSE 73; RESP 16; O2SAT 98
--- NOTE | 2025-01-05 12:36 | PM.ANPOST ---
Post Anesthesia Note Post Anesthesia Note Patient seen: Inpatient Respiratory Status: adequate Cardiovascular Status: adequate Mental Status: baseline Pain: adequate Temp: baseline Anesthetic awareness: N/A Complications: none Follow care: none
[2025-01-05] MEDS: ACETAMINOPHEN 500 MG TABLET 1000 MG PO ×2 (13:16→19:52)
[2025-01-05 15:22] VITALS: BP 103/60; PULSE 74; RESP 16; TEMP 36.6; O2SAT 98
[2025-01-05 19:43] VITALS: BP 114/71; PULSE 84; RESP 16; TEMP 36.6; O2SAT 99
== END 2025-01-05 21:45 | disposition home or self-care (01) | DRG 560 ==
PROVIDERS: Admitting Provider Obstetrics & Gynecology; PCP Family Medicine; Visit Provider Obstetrics & Gynecology
DX: O70.1 Second degree perineal laceration during delivery (principal); Z3A.40 40 weeks gestation of pregnancy; Z37.0 Single live birth
CPT/HCPCS: 01967; 36415; 85018; 85025; 86592; 86850; 86900; 86901; A9270; J2003; J2795; J7120

== ENCOUNTER 2025-02-04 09:49 | Outpatient (CLI) | payer BC, SELFPAY | END 2025-02-04 09:50 | disposition home or self-care (01) | LOC: NFLDREF 09:50 | PROVIDERS: PCP Family Medicine; Visit Provider Family Medicine | DX: Z76.89 Persons encountering health services in other specified circumstances (principal); Z72.89 Other problems related to lifestyle | CPT/HCPCS: 80048; 87086 ==

== ENCOUNTER 2025-02-24 06:58 | Outpatient (CLI) | payer BC, SELFPAY ==
--- NOTE | 2025-02-24 07:15 | CRLHL7_ITS ---
For Patients: As a result of the Century Cures Act, medical imaging exams and procedure reports are released immediately into your electronic medical record. You may view this report before your referring provider. If you have questions, please contact your health care provider. INDICATION: Family history of polycystic kidney disease TECHNIQUE: Ultrasound renal and bladder complete. Hutchinson-scale and color Doppler sonographic images were acquired of the kidneys and urinary bladder. COMPARISON: None FINDINGS: Right Kidney: Size: 11.6 x 4.5 x 6.5 centimeters. Cortical thickness 1.7 centimeters. Normal echogenicity without hydronephrosis. No masses or nephrolithiasis seen. Left Kidney: Size: 11.9 x 4.7 x 6.0 centimeters. Cortical thickness 2.3 centimeters. Normal echogenicity without hydronephrosis. No masses or nephrolithiasis seen. Bladder: Normal in caliber. Bilateral ureteral jets. Prevoid bladder volume of 55 cc and postvoid bladder residual of 11 cc. IMPRESSION: Unremarkable renal ultrasound. Dictated by Mayur Banda MD @ 02/24/2025 8:29:45 AM (Electronically Signed)
== END 2025-02-24 06:59 | disposition home or self-care (01) ==
LOC: US 06:58
PROVIDERS: PCP Family Medicine; Visit Provider Family Medicine
DX: Z82.71 Family history of polycystic kidney (principal)
CPT/HCPCS: 76770